=== PATIENT | female | born 1990 | race Caucasian/White ===

== ENCOUNTER → 2016-07-17 | Outpatient (CLI) | payer BC, OTHER ==
[2016-07-17 11:17] LABS: Basophils # (A) 0.1 k/uL (0-0.2); Basophils % (A) 2 %; CH 30.1; CHCM 34.4; Eosinophils # (A) 0.2 k/uL (0-0.7); Eosinophils % (A) 3 %; HCT 42.4 % (34.0-46.0); HDW 2.83; Luc # (Auto) 0.14; Luc % (Auto) 2; Lymphocytes # (A) 2.5 k/uL (1.0-4.8); Lymphocytes % (A) 39 %; MCH 29.2 pg (25.0-35.0); MCHC 33.1 g/dL (31.0-37.0); MCV 88.1 fL (80.0-100.0); Mean Platelet Volume 7.4; Monocytes # (A) 0.3 k/uL (0-1.0); Monocytes % (A) 5 %; Neutrophils # (A) 3.2 k/uL (1.3-7.7); Neutrophils % (A) 50 %; RBC 4.81 m/uL (3.80-5.40); RDW 12.8 % (11.5-15.5); WBC 6.5 k/uL (3.8-10.6); WBC (Perox) 6.74
[2016-07-17 12:10] LABS: ALT 35 U/L (9-52); AST 22 U/L (14-36); Alkaline Phosphatase 79 U/L (38-126); Anion Gap 11 mmol/L; Blood Urea Nitrogen 9 mg/dL (7-17); C Reactive Protein 6.7 mg/L (<10.0); Calcium 9.6 mg/dL (8.4-10.2); Carbon Dioxide 27 mmol/L (22-30); Chloride 104 mmol/L (98-107); Glucose 91 mg/dL (74-99); Non-African American GFR(MDRD) >60 (>60 ml/min/1.73 sqM); Potassium 3.8 mmol/L (3.5-5.1); Rheumatoid Factor, Qnt <9 IU/mL (<12); Sodium 142 mmol/L (137-145); Total Bilirubin 0.8 mg/dL (0.2-1.3)
[2016-07-17 12:18] LABS: Erythrocyte Sedimentation Rate 2 mm/hr (0-20)
[2016-07-17 12:59] LABS: Vitamin B12 777 pg/mL (239-931)
--- NOTE | 2016-07-17 15:49 | MR ---
EXAMINATION TYPE: MR brain wo con DATE OF EXAM: 07/17/2016 10:46 AM COMPARISON: NONE HISTORY: Right Side Numbness, Headaches, no Trauma or Surgery TECHNIQUE: Multiplanar, multisequence imaging of the brain and brainstem is performed without IV cont rast. FINDINGS: Diffusion weighted images demonstrate no evidence of a recent infarct or other diffusion abnormality. There is no extraaxial fluid collection or significant white matter signal abnormality. The ventricu lar system and cisternal spaces are normal in size and appearance. The brain volume is age appropria te. Midline structures demonstrate normal morphology. The craniocervical junction appears within normal limits. Normal vascular flow voids are present. There is mild mucosal thickening involving ethmoid si nuses bilaterally otherwise the paranasal sinuses are grossly clear. There is some artifact distortio n at level of bilateral globes noted. No suspicious fluid signal is seen in bilateral mastoid air hi ls. IMPRESSION: Mild chronic ethmoid sinus disease otherwise unremarkable study.
--- NOTE | 2016-07-17 15:53 | MR ---
MRI CERVICAL SPINE: MRI LUMBAR SPINE: CLINICAL HISTORY: Cervicalgia and lumbago per order. Headache with neck pain and stiffness and numbne ss for 4 months and low back pain per patient. TECHNIQUE: Multiplanar, multisequence imaging of the cervical and lumbar spine are performed without IV contrast. COMPARISON: CT abdomen and pelvis June 09, 2015 FINDINGS: C-SPINE: Sagittal images of the cervical spine show the craniocervical junction to appear within normal limits . The cervical and upper thoracic spinal cord is normal in course, caliber, and signal. Vertebral a lignment is anatomic. The vertebral body and intravertebral disk heights are normal. No significant posterior disc herniations are seen on sagittal images. The bone marrow signal intensity is within n ormal limits. Axial images show the C2-C3, C3-C4, C4-C5 level to appear within normal limits. Axial images at C5-C6 level show tiny central disc protrusion minimally effacing anterior thecal sac on axial image 21. There is increased signal posteriorly consistent with annular tear at this level. Bilateral neural foramina are patent. Axial images at C6-C7 and C7-T1 level are felt within normal limits. IMPRESSION: Annular tear with small posterior disc herniation minimally effacing anterior thecal sac C5-C6 level noted. EXAMINATION TYPE: MR cspine/lspine wo con DATE OF EXAM: 07/17/2016 10:47 AM COMPARISON: NONE L-SPINE: FINDINGS: Sagittal images of the lumbar spine show vertebral body heights and alignment to appear sat isfactory. The intervertebral discs demonstrate normal heights and hydration. No significant posteri or disc herniations are seen on sagittal images. The conus medullaris is normal in position and signa l ending at superior L1 vertebral body level. The bone marrow signal intensity is within normal limi ts. No significant spurring is present. Axial images show mild facet arthropathy at L4-L5 and L5-S1 levels. Spinal canal is preserved. No sig nificant posterior disc herniations are seen. Bilateral neural foramina are grossly patent. IMPRESSION: Mild facet arthropathy lower lumbar levels otherwise unremarkable study.
[2016-07-19 14:27] LABS: ANA w/Reflex to Titer POSITIVE (NEGATIVE)
== END | disposition home or self-care (01) ==
LOC: RADMRIMAIN 09:12
PROVIDERS: ATTEND Nurse Practitioner Acute Care
DX: R51 Headache (principal); M50.222 Other cervical disc displacement at C5-C6 level; M50.322 Other cervical disc degeneration at C5-C6 level; M46.96 Unspecified inflammatory spondylopathy, lumbar region
CPT/HCPCS: 36415; 70551; 72141; 72148; 80053; 82306; 82607; 84439; 84443; 84481; 85025; 85652; 86038; 86039; 86140; 86431

== ENCOUNTER → 2016-10-25 | Outpatient (CLI) | payer SELFPAY ==
--- NOTE | 2016-10-25 15:51 | US ---
EXAMINATION TYPE: US kidneys/renal and bladder DATE OF EXAM: 10/25/2016 3:27 PM COMPARISON: NONE CLINICAL HISTORY: 26-year-old female with R10.9 Rt Flank Pain. TECHNIQUE: Multiple sonographic images of the kidneys and bladder were obtained. FINDINGS: Right Kidney: 10.2 x 4.3 x 5.2 cm without hydronephrosis. Left Kidney: 10.2 x 5.0 x 4.3 cm without hydronephrosis. No gross abnormality of the partially urine distended bladder. Both ureteral jets are visualized. IMPRESSION: No hydronephrosis.
--- NOTE | 2016-10-25 15:53 | US ---
EXAMINATION TYPE: US pelvic complete DATE OF EXAM: 10/25/2016 3:35 PM COMPARISON: NONE CLINICAL HISTORY: 26-year-old female R10.9 Rt Flank Pain. Right pelvic pain, nausea Date of LMP: 2-3 weeks ago TECHNIQUE: Multiple transabdominal sonographic images of the pelvis are obtained. FINDINGS: Uterus: Anteverted measuring 8.9 x 3.7 x 4.3 cm Endometrial Stripe: 1.0 cm, within normal limits. Right Ovary: 2.5 x 1.2 x 1.5 cm Left Ovary: 4.2 x 2.1 x 1.7 cm with follicular change. There may be a 2.5 cm septated versus 2 adjac ent cysts No evident adnexal abnormality or cul-de-sac free fluid. IMPRESSION: 1. Either a 2.5 cm septated cyst versus 2 adjacent cysts/follicles in the left ovary. Consider follow -up in 6-8 weeks to ensure resolution. 2. Otherwise, no specific abnormality seen on transabdominal scanning.
== END | disposition home or self-care (01) ==
LOC: RADUSWWP 15:04
PROVIDERS: ATTEND Pediatrics
DX: R10.9 Unspecified abdominal pain (principal)
CPT/HCPCS: 76770; 76856

== ENCOUNTER 2017-04-03 14:47 | Emergency (ER) | payer BC, OTHER ==
[2017-04-03 15:07] VITALS: RESP 18
[2017-04-03] MEDS ORDERED: Rhogam IMMUNE GLOBULIN 1,500 UNIT/1 ML IM ONE (15:32)
[2017-04-03 16:04] LABS: Basophils % (A) 1 %; CH 30.9; CHCM 33.5; Eosinophils # (A) 0.2 k/uL (0-0.7); Eosinophils % (A) 3 %; HDW 2.46; HGB 12.6 gm/dL (11.4-16.0); Luc % (Auto) 1; Lymphocytes % (A) 30 %; MCH 29.8 pg (25.0-35.0); MCHC 32.2 g/dL (31.0-37.0); MCV 92.6 fL (80.0-100.0); Mean Platelet Volume 7.7; Monocytes # (A) 0.4 k/uL (0-1.0); Monocytes % (A) 5 %; Neutrophils # (A) 3.9 k/uL (1.3-7.7); Neutrophils % (A) 60 %; RBC 4.21 m/uL (3.80-5.40); RDW 14.4 % (11.5-15.5); WBC 6.6 k/uL (3.8-10.6); WBC (Perox) 7.23
[2017-04-03 16:13] LABS: Anion Gap 10 mmol/L; Blood Urea Nitrogen 11 mg/dL (7-17); Calcium 9.5 mg/dL (8.4-10.2); Carbon Dioxide 21 mmol/L (22-30); Chloride 110 mmol/L (98-107); Glucose 121 mg/dL (74-99); Non-African American GFR(MDRD) >60 (>60 ml/min/1.73 sqM); Potassium 3.8 mmol/L (3.5-5.1); Sodium 141 mmol/L (137-145)
--- NOTE | 2017-04-03 16:26 | ED ---
Female Urogenital HPI - General Chief complaint: Vaginal Bleeding Stated complaint: 4 weeks /Bleeding Time Seen by Provider: 04/03/17 15:31 Source: patient, RN notes reviewed Mode of arrival: ambulatory Limitations: no limitations - History of Present Illness Initial comments: this a 26-year-old female presents emergency from she complaint vaginal bleeding in early . Patient states she is A0 started having spotting last 24 hours. Patient states that she took a test on she is . Patient states she is scheduled appointment with her [facility] Dr. Bernal. Patient states she has some lower abdominal cramping denies any dysuria or hematuria. Denies any vaginal discharge only states that she has bleeding. Patient denies any nausea, vomiting diarrhea constipation. Last Menstrual Period: 02/24/17 - Related Data Home Medications Medication Instructions Recorded Confirmed Sertraline [Zoloft] 50 mg PO HS 05/10/16 04/03/17 Cetirizine HCl [Zyrtec] 10 mg PO HS 04/03/17 04/03/17 Cholecalciferol [Vitamin D3] 1,000 unit PO HS 04/03/17 04/03/17 Multivit with Calcium,Iron,Min 1 tab PO QAM 04/03/17 04/03/17 [Women's Multivitamin] Allergies Allergy/AdvReac Type Severity Reaction Status Date / Time No Known Allergies Allergy Verified 04/03/17 15:21 Review of Systems ROS Statement: Those systems with pertinent positive or pertinent negative responses have been documented in the HPI. ROS Other: All systems not noted in ROS Statement are negative. Past Medical History Past Medical History: No Reported History Additional Past Medical History / Comment(s): History of a blood clot in her right arm after having her wisdom teeth pulled History of Any Multi-Drug Resistant Organisms: None Reported Past Surgical History: No Surgical Hx Reported Additional Past Surgical History / Comment(s): wisdom teeth removed Past Anesthesia/Blood Transfusion Reactions: No Reported Reaction Past Psychological History: Depression Smoking Status: Never smoker Past Alcohol Use History: Occasional Past Drug Use History: None Reported - Past Family History Mother Family Medical History: No Reported History General Exam Limitations: no limitations General appearance: alert, in no apparent distress Head exam: Present: atraumatic, normocephalic, normal inspection Cardiovascular Exam: Present: regular rate, normal rhythm, normal heart sounds. Absent: systolic murmur, diastolic murmur, rubs, gallop, clicks GI/Abdominal exam: Present: soft, normal bowel sounds. Absent: distended, tenderness, guarding, rebound, rigid Back exam: Absent: CVA tenderness (R), CVA tenderness (L) Course Vital Signs 04/03/17 15:03 Temperature 97.4 F L Pulse Rate 75 Respiratory 18 Rate Blood Pressure 121/82 O2 Sat by Pulse 100 Oximetry Medical Decision Making - Medical Decision Making 26-year-old female presented emergency department for vaginal bleeding in early . Patient appears to be having a miscarriage. Patient ECG is only 7 at this time. Patient is b negativeand still receive RhoGAM she'll follow-up with [facility] return parameters discussed. - Lab Data Result diagrams: 04/03/17 15:52 04/03/17 15:52 Lab Results 04/03/17 04/03/17 04/03/17 Range/Units 15:52 15:52 15:52 WBC 6.6 (3.8-10.6) k/uL RBC 4.21 (3.80-5.40) m/uL Hgb 12.6 (11.4-16.0) gm/dL Hct 39.0 (34.0-46.0) % MCV 92.6 (80.0-100.0) fL MCH 29.8 (25.0-35.0) pg MCHC 32.2 (31.0-37.0) g/dL RDW 14.4 (11.5-15.5) % Plt Count 231 (150-450) k/uL Neutrophils % 60 % Lymphocytes % 30 % Monocytes % 5 % Eosinophils % 3 % Basophils % 1 % Neutrophils # 3.9 (1.3-7.7) k/uL Lymphocytes # 2.0 (1.0-4.8) k/uL Monocytes # 0.4 (0-1.0) k/uL Eosinophils # 0.2 (0-0.7) k/uL Basophils # 0.0 (0-0.2) k/uL Sodium 141 (137-145) mmol/L Potassium 3.8 (3.5-5.1) mmol/L Chloride 110 H (98-107) mmol/L Carbon Dioxide 21 L (22-30) mmol/L Anion Gap 10 mmol/L BUN 11 (7-17) mg/dL Creatinine 0.60 (0.52-1.04) mg/dL Est GFR (MDRD) Af Amer >60 (>60 ml/min/1.73 sqM) Est GFR (MDRD) Non-Af >60 (>60 ml/min/1.73 sqM) Glucose 121 H (74-99) mg/dL Calcium 9.5 (8.4-10.2) mg/dL HCG, Quant 7.1 mIU/mL Urine Color Urine Appearance (Clear) Urine pH (5.0-8.0) Ur Specific [place] (1.001-1.035) Urine Protein (Negative) Urine Glucose (UA) (Negative) Urine Ketones (Negative) Urine Blood (Negative) Urine Nitrite (Negative) Urine Bilirubin (Negative) Urine Urobilinogen (<2.0) mg/dL Ur Leukocyte Esterase (Negative) Urine RBC (0-5) /hpf Urine WBC (0-5) /hpf Ur Squamous Epith Cells (0-4) /hpf Urine Bacteria (None) /hpf Urine Mucus (None) /hpf Blood Type B Negative Blood Type Recheck No Antibody Screen NEGATIVE Spec Expiration Date 04/06/2017 - 235104/03/17 Range/Units 16:00 WBC (3.8-10.6) k/uL RBC (3.80-5.40) m/uL Hgb (11.4-16.0) gm/dL Hct (34.0-46.0) % MCV (80.0-100.0) fL MCH (25.0-35.0) pg MCHC (31.0-37.0) g/dL RDW (11.5-15.5) % Plt Count (150-450) k/uL Neutrophils % % Lymphocytes % % Monocytes % % Eosinophils % % Basophils % % Neutrophils # (1.3-7.7) k/uL Lymphocytes # (1.0-4.8) k/uL Monocytes # (0-1.0) k/uL Eosinophils # (0-0.7) k/uL Basophils # (0-0.2) k/uL Sodium (137-145) mmol/L Potassium (3.5-5.1) mmol/L Chloride (98-107) mmol/L Carbon Dioxide (22-30) mmol/L Anion Gap mmol/L BUN (7-17) mg/dL Creatinine (0.52-1.04) mg/dL Est GFR (MDRD) Af Amer (>60 ml/min/1.73 sqM) Est GFR (MDRD) Non-Af (>60 ml/min/1.73 sqM) Glucose (74-99) mg/dL Calcium (8.4-10.2) mg/dL HCG, Quant mIU/mL Urine Color Yellow Urine Appearance Clear (Clear) Urine pH 6.5 (5.0-8.0) Ur Specific [place] 1.027 (1.001-1.035) Urine Protein Trace H (Negative) Urine Glucose (UA) 2+ H (Negative) Urine Ketones Negative (Negative) Urine Blood Moderate H (Negative) Urine Nitrite Negative (Negative) Urine Bilirubin Negative (Negative) Urine Urobilinogen <2.0 (<2.0) mg/dL Ur Leukocyte Esterase Small H (Negative) Urine RBC >182 H (0-5) /hpf Urine WBC 16 H (0-5) /hpf Ur Squamous Epith Cells 6 H (0-4) /hpf Urine Bacteria Occasional H (None) /hpf Urine Mucus Few H (None) /hpf Blood Type Blood Type Recheck Antibody Screen Spec Expiration Date Disposition Clinical Impression: Miscarriage Disposition: HOME SELF-CARE Condition: Stable Instructions: Miscarriage (ED) Additional Instructions: Please return to the Emergency Department if symptoms worsen or any other concerns. Referrals: Edgardo Dunn MD [Primary Care Provider] - 1-2 days
[2017-04-03 16:51] LABS: Appearance,Urine Clear (Clear); Bacteria,Urine Occasional /hpf; Bilirubin,Urine Negative (Negative); Glucose,Urine (UA) 2+ (Negative); Ketones,Urine Negative (Negative); Leukocyte Esterase,Urine Small (Negative); Mucus,Urine Few /hpf; Nitrite,Urine Negative (Negative); PH, Urine 6.5 (5.0-8.0); Particle Count 7164; Protein,Urine Trace (Negative); RBC,Urine >182 /hpf (0-5); Specific Gravity,Urine 1.027 (1.001-1.035); Squamous Epithelial Cell,Urine 6 /hpf (0-4); UA Billing (MACRO vs. MICRO) MICRO; Urobilinogen,Urine <2.0 mg/dL (<2.0); WBC,Urine 16 /hpf (0-5)
--- NOTE | 2017-04-03 17:00 | US ---
EXAMINATION TYPE: US OB <=14 wks transvag DATE OF EXAM: 04/03/2017 COMPARISON: NONE CLINICAL HISTORY: pain. EXAM PERFORMED: Transvaginal (TV) and Transabdominal (TA) EXAM MEASUREMENTS: GESTATIONAL AGE / DATING Physician Established: Not yet established Dates by LMP: LMP unknown Dates by First Scan: No previous this is first scan EDC: Dates by Current Scan for: No IUP seen at this time MATERNAL ANATOMY Uterus: 6.8 x 3.2 x 4.6 Right Ovary: 1.9 x 1.1 x 1.3cm Left Ovary: obscured by bowel gas Post CDS / Adnexa: wnl GESTATION / SURVEY IUP: No IUP seen at this time Date of LMP: 02/24/17 Beta HcG (if available): 7.1 IMPRESSION: Normal uterus and endometrium. No adnexal mass. No evidence of a gestational sac.
[2017-04-03 17:40] VITALS: BP 123/62; PULSE 76; TEMP 97.3
== END 2017-04-03 17:40 | disposition home or self-care (01) ==
LOC: EC 14:47
DX: O03.9 Complete or unspecified spontaneous abortion without complication (principal); O99.341 Other mental disorders complicating pregnancy, first trimester; F32.9 Major depressive disorder, single episode, unspecified; Z3A.01 Less than 8 weeks gestation of pregnancy; Z79.899 Other long term (current) drug therapy
CPT/HCPCS: 36415; 86900; 86901; 80048; 85025; 86850; 81001; 84702; 76801; 76817; 99284; 96372; J2791

== ENCOUNTER 2017-06-01 13:41 | Emergency (ER) | payer BC, OTHER ==
[2017-06-01 13:48] VITALS: RESP 17; TEMP 97.7
[2017-06-01] MEDS ORDERED: SODIUM CHLORIDE 0.9% 500 ML IV ONE (14:41)
--- NOTE | 2017-06-01 14:44 | ED ---
Abdominal Pain HPI - General Chief Complaint: Abdominal Pain Stated Complaint: flank pain/early Time Seen by Provider: 06/01/17 14:13 Source: patient, RN notes reviewed Mode of arrival: ambulatory Limitations: no limitations - History of Present Illness Initial Comments: This a 26-year-old female presents emergency Department chief complaint right flank pain. Patient states it started last has been persistent. Patient states she found out last week also she is . Patient is A1. She states that she had a miscarriage in March currently scheduled see Dr. Bernal. Patient denies any vaginal bleeding or vaginal discharge. Denies any dysuria, hematuria. She states she is just concerned because of pain worsen slightly today. Patient denies any chest pain or shortness of breath. - Related Data Home Medications Medication Instructions Recorded Confirmed Sertraline [Zoloft] 100 mg PO HS 05/10/16 06/01/17 Cetirizine HCl [Zyrtec] 10 mg PO HS 04/03/17 06/01/17 Hrg-Dqnc-Frxyr Acid 1 cap PO DAILY 06/01/17 06/01/17 [-U Capsule (formulary)] Allergies Allergy/AdvReac Type Severity Reaction Status Date / Time No Known Allergies Allergy Verified 06/01/17 14:00 Review of Systems ROS Statement: Those systems with pertinent positive or pertinent negative responses have been documented in the HPI. ROS Other: All systems not noted in ROS Statement are negative. Past Medical History Past Medical History: Blood Disorder, Deep Vein Thrombosis (DVT) Additional Past Medical History / Comment(s): History of a blood clot in her right arm after having her wisdom teeth pulled, anemia History of Any Multi-Drug Resistant Organisms: None Reported Past Surgical History: No Surgical Hx Reported Additional Past Surgical History / Comment(s): wisdom teeth removed Past Anesthesia/Blood Transfusion Reactions: No Reported Reaction Past Psychological History: Depression Smoking Status: Never smoker Past Alcohol Use History: None Reported Past Drug Use History: None Reported - Past Family History Mother Family Medical History: No Reported History General Exam Limitations: no limitations General appearance: alert, in no apparent distress Head exam: Present: atraumatic, normocephalic, normal inspection Respiratory exam: Present: normal lung sounds bilaterally. Absent: respiratory distress, wheezes, rales, rhonchi, stridor Cardiovascular Exam: Present: regular rate, normal rhythm, normal heart sounds. Absent: systolic murmur, diastolic murmur, rubs, gallop, clicks GI/Abdominal exam: Present: soft, tenderness (Mild right-sided right flank), normal bowel sounds. Absent: distended, guarding, rebound, rigid Back exam: Absent: CVA tenderness (R), CVA tenderness (L) Skin exam: Present: warm, dry, intact, normal color. Absent: rash Course Vital Signs 06/01/17 06/01/17 13:42 16:27 Temperature 97.7 F Pulse Rate 88 83 Respiratory 17 17 Rate Blood Pressure 124/72 118/65 O2 Sat by Pulse 99 100 Oximetry Medical Decision Making - Medical Decision Making 26-year-old female presented for abdominal pain in early . I do not see any complicating factors or signs of infection at this time. Patient has very early with an hCG level of 223. Ultrasound was performed which did not show much secondary to early . No evidence of infection. Patient has no vaginal bleeding or vaginal discharge. She will follow up at her scheduled [facility] appointment return parameters were discussed. - Lab Data Result diagrams: 06/01/17 14:55 06/01/17 14:55 Lab Results 06/01/17 06/01/17 06/01/17 Range/Units 14:55 14:55 14:55 WBC 7.6 (3.8-10.6) k/uL RBC 4.51 (3.80-5.40) m/uL Hgb 13.1 (11.4-16.0) gm/dL Hct 39.7 (34.0-46.0) % MCV 88.1 (80.0-100.0) fL MCH 29.1 (25.0-35.0) pg MCHC 33.0 (31.0-37.0) g/dL RDW 12.5 (11.5-15.5) % Plt Count 242 (150-450) k/uL Neutrophils % 64 % Lymphocytes % 25 % Monocytes % 6 % Eosinophils % 2 % Basophils % 0 % Neutrophils # 4.9 (1.3-7.7) k/uL Lymphocytes # 1.9 (1.0-4.8) k/uL Monocytes # 0.5 (0-1.0) k/uL Eosinophils # 0.1 (0-0.7) k/uL Basophils # 0.0 (0-0.2) k/uL Sodium 140 (137-145) mmol/L Potassium 4.6 (3.5-5.1) mmol/L Chloride 107 (98-107) mmol/L Carbon Dioxide 22 (22-30) mmol/L Anion Gap 11 mmol/L BUN 9 (7-17) mg/dL Creatinine 0.60 (0.52-1.04) mg/dL Est GFR (MDRD) Af Amer >60 (>60 ml/min/1.73 sqM) Est GFR (MDRD) Non-Af >60 (>60 ml/min/1.73 sqM) Glucose 76 (74-99) mg/dL Calcium 9.3 (8.4-10.2) mg/dL Total Bilirubin 0.4 (0.2-1.3) mg/dL AST 23 (14-36) U/L ALT 32 (9-52) U/L Alkaline Phosphatase 66 (38-126) U/L Total Protein 7.0 (6.3-8.2) g/dL Albumin 4.4 (3.5-5.0) g/dL HCG, Quant 223.6 mIU/mL Urine Color Yellow Urine Appearance Clear (Clear) Urine pH 8.0 (5.0-8.0) Ur Specific [place] 1.016 (1.001-1.035) Urine Protein Negative (Negative) Urine Glucose (UA) Negative (Negative) Urine Ketones Negative (Negative) Urine Blood Negative (Negative) Urine Nitrite Negative (Negative) Urine Bilirubin Negative (Negative) Urine Urobilinogen 2.0 (<2.0) mg/dL Ur Leukocyte Esterase Negative (Negative) Disposition Clinical Impression: Abdominal pain during Disposition: HOME SELF-CARE Condition: Stable Instructions: Abdominal Pain in (ED) Additional Instructions: Please return to the Emergency Department if symptoms worsen or any other concerns. Referrals: Edgardo Dunn MD [Primary Care Provider] - 1-2 days Time of Disposition: 16:32
[2017-06-01 15:11] LABS: Appearance,Urine Clear (Clear); Bilirubin,Urine Negative (Negative); Glucose,Urine (UA) Negative (Negative); Ketones,Urine Negative (Negative); Leukocyte Esterase,Urine Negative (Negative); Nitrite,Urine Negative (Negative); Protein,Urine Negative (Negative); Specific Gravity,Urine 1.016 (1.001-1.035); UA Billing (MACRO vs. MICRO) CHEM
[2017-06-01 15:16] LABS: Basophils % (A) 0 %; CH 29.7; CHCM 33.9; Eosinophils # (A) 0.1 k/uL (0-0.7); Eosinophils % (A) 2 %; HCT 39.7 % (34.0-46.0); HDW 2.54; HGB 13.1 gm/dL (11.4-16.0); Luc % (Auto) 3; Lymphocytes # (A) 1.9 k/uL (1.0-4.8); Lymphocytes % (A) 25 %; MCH 29.1 pg (25.0-35.0); MCV 88.1 fL (80.0-100.0); Monocytes # (A) 0.5 k/uL (0-1.0); Monocytes % (A) 6 %; Neutrophils # (A) 4.9 k/uL (1.3-7.7); Neutrophils % (A) 64 %; RBC 4.51 m/uL (3.80-5.40); RDW 12.5 % (11.5-15.5); WBC 7.6 k/uL (3.8-10.6); WBC (Perox) 7.53
[2017-06-01 15:45] LABS: ALT 32 U/L (9-52); AST 23 U/L (14-36); Alkaline Phosphatase 66 U/L (38-126); Anion Gap 11 mmol/L; Blood Urea Nitrogen 9 mg/dL (7-17); Calcium 9.3 mg/dL (8.4-10.2); Carbon Dioxide 22 mmol/L (22-30); Chloride 107 mmol/L (98-107); Glucose 76 mg/dL (74-99); Non-African American GFR(MDRD) >60 (>60 ml/min/1.73 sqM); Potassium 4.6 mmol/L (3.5-5.1); Sodium 140 mmol/L (137-145); Total Bilirubin 0.4 mg/dL (0.2-1.3)
--- NOTE | 2017-06-01 16:22 | US ---
EXAMINATION TYPE: US kidneys/renal and bladder DATE OF EXAM: 06/01/2017 COMPARISON: 10/25/2016 CLINICAL HISTORY: Pain. Right side pain EXAM MEASUREMENTS: Right Kidney: 10.0 x 4.6 x 3.8 cm Left Kidney: 10.0 x 4.5 x 4.3 cm Right Kidney: No hydronephrosis or masses seen Left Kidney: No hydronephrosis or masses seen Bladder: wnl as visualized Bilateral Jets seen There is no evidence for hydronephrosis at this point in time. No nephrolithiasis is seen. No iqra s are identified. The urinary bladder is anechoic. Bilateral ureteral jets are seen. IMPRESSION: Normal retroperitoneal ultrasound
--- NOTE | 2017-06-01 16:24 | US ---
EXAMINATION TYPE: US OB <=14 wks transvag DATE OF EXAM: 06/01/2017 COMPARISON: CLINICAL HISTORY: Pain. patient states she found out she was last week and is having right s carlos pain. No bleeding. EXAM PERFORMED: Transvaginal (TV) and Transabdominal (TA) EXAM MEASUREMENTS: GESTATIONAL AGE / DATING Dates by LMP: (5 weeks/0 days) EDC: 02/01/2018 Dates by Current Scan for: No IUP seen at this time MATERNAL ANATOMY Uterus: 8.7 x 4.8 x 4.1 cm Right Ovary: 2.5 x 1.4 x 1.2 cm Left Ovary: 4.9 x 2.4 x 2.5 cm Post CDS / Adnexa: free fluid seen in posterior cul de sac and adjacent to both ovaries Presence of corpus luteal cyst: Complex lesion seen in left ovary = 3.0 x 2.9 x 2.2 cm GESTATION / SURVEY IUP: No IUP seen at this time Date of LMP: 04/27/2017, Beta HcG (if available): 223.6 GS, YS and CRL not seen. Endometrium appears thickened = 1.7 cm and slightly heterogenous. IMPRESSION: 1. Nonvisualization of an intrauterine at this time. Early gestation and spontaneous aborti on could be considered. Ectopic is not excluded and follow-up exams and correlation with be ta-hCG is recommended. 2. Complex cyst left ovary
[2017-06-01 16:28] VITALS: BP 118/65; PULSE 83
== END 2017-06-01 16:42 | disposition home or self-care (01) ==
LOC: EC 13:41
DX: O99.89 Other specified diseases and conditions complicating pregnancy, childbirth and the puerperium (principal); R10.9 Unspecified abdominal pain; O99.341 Other mental disorders complicating pregnancy, first trimester; F32.9 Major depressive disorder, single episode, unspecified; Z3A.01 Less than 8 weeks gestation of pregnancy; Z79.899 Other long term (current) drug therapy
CPT/HCPCS: 36415; 76770; 76801; 76817; 80053; 81003; 84702; 85025; 87086; 96360; 96361; 99284

== ENCOUNTER → 2017-06-07 | Outpatient (CLI) | payer BC, OTHER | END | disposition home or self-care (01) | LOC: LABWHC1 09:11 | PROVIDERS: ATTEND Obstetrics & Gynecology | DX: O26.891 Other specified pregnancy related conditions, first trimester (principal); Z3A.00 Weeks of gestation of pregnancy not specified | CPT/HCPCS: 36415; 84702 ==

== ENCOUNTER 2017-07-27 19:23 | Emergency (ER) | payer BC, OTHER ==
[2017-07-27 19:31] VITALS: TEMP 98.7
[2017-07-27] MEDS ORDERED: SODIUM CHLORIDE 0.9% 1,000 ML IV STA ×2 (19:46)
[2017-07-27] MEDS ORDERED: METOCLOPRAMIDE 5 MG/ML 2 ML VIAL IVP STA (19:46)
--- NOTE | 2017-07-27 19:54 | ED ---
General Adult HPI - General Chief complaint: Nausea/Vomiting/Diarrhea Stated complaint: Dehydration Source: patient, RN notes reviewed Mode of arrival: ambulatory Limitations: no limitations - History of Present Illness Initial comments: Chief complaint and history of present illness a 26-year-old female who is 13 weeks . Patient states she was flying on a plane yesterday had one episode of vomiting was a small amount of blood in that. Today she vomited 5 times for several times no blood was noted. Afterwards she did drink red Gatorade and look red. No pain. She also had diarrhea. No fever. Patient has had difficulties problems with nausea vomiting because of the . - Related Data Home Medications Medication Instructions Recorded Confirmed Cetirizine HCl [Zyrtec] 10 mg PO HS 04/03/17 07/27/17 Eui-Icft-Amcag Acid 1 cap PO HS 06/01/17 07/27/17 [-U Capsule (formulary)] Sertraline [Zoloft] 100 mg PO HS 07/27/17 07/27/17 Previous Rx's Medication Instructions Recorded Ondansetron Odt [Zofran Odt] 4 mg PO Q8HR PRN #10 tab 07/27/17 Allergies Allergy/AdvReac Type Severity Reaction Status Date / Time No Known Allergies Allergy Verified 07/27/17 19:35 Review of Systems ROS Statement: Those systems with pertinent positive or pertinent negative responses have been documented in the HPI. Review of systems. Patient denies headache or visual acuity changes no chest pain or shortness of breath. She has nausea vomiting several times today. Loose stool earlier. Area no fever. No neuro deficits. All systems are reviewed. Past medical problems no significant medical problems. Patient is 13 weeks . She did not get a flu shot this fall. The patient's surgeries include wisdom teeth only. Family history no cancers. Patient reports are seasonal ALLERGIES. Nonsmoker drinks alcohol socially when not . ROS Other: All systems not noted in ROS Statement are negative. Past Medical History Past Medical History: Blood Disorder, Deep Vein Thrombosis (DVT) Additional Past Medical History / Comment(s): History of a blood clot in her right arm after having her wisdom teeth pulled, anemia History of Any Multi-Drug Resistant Organisms: None Reported Past Surgical History: No Surgical Hx Reported Additional Past Surgical History / Comment(s): wisdom teeth removed Past Anesthesia/Blood Transfusion Reactions: No Reported Reaction Past Psychological History: Depression Smoking Status: Never smoker Past Alcohol Use History: None Reported Past Drug Use History: None Reported - Past Family History Mother Family Medical History: No Reported History General Exam - General Exam Comments Initial Comments: General: The patient is awake and alert, in no distress, and does not appear acutely ill. Complains of nausea vomiting diarrhea past 24 hours. Vital signs are temperature 98.7 pulse 83 respiratory rate 16 pulse ox 99% room air blood pressure 133/62 Eye: Pupils are equal, round and reactive to light, extra-ocular movements are intact ; there is normal conjunctiva bilaterally. No signs of icterus. Ears, nose, mouth and throat: There are moist mucous membranes and no oral lesions. Neck: The neck is supple, there is no tenderness . Cardiovascular: There is a regular rate and rhythm. No murmur, rub or gallop is appreciated. Respiratory: Lungs are clear to auscultation, respirations are non-labored, breath sounds are equal. No wheezes, stridor, rales, or rhonchi. Gastrointestinal: Soft, non-distended, non-tender abdomen without masses or organomegaly noted. There is no rebound or guarding present. No CVA tenderness. Bowel sounds are unremarkable. Back: There is no tenderness to palpation in the midline. There is no obvious deformity. No rashes noted. Nausea vomiting couple of sores diarrhea. Musculoskeletal: Normal ROM, no tenderness, There is no pedal edema. There is no calf tenderness or swelling. Sensation intact. Pulses equal bilaterally 2+. Neurological: No focal or lateralizing findings Skin: Skin is warm and dry and no rashes or lesions are noted. Limitations: no limitations Course Vital Signs 07/27/17 19:28 Temperature 98.7 F Pulse Rate 83 Respiratory 16 Rate Blood Pressure 133/62 O2 Sat by Pulse 99 Oximetry Medical Decision Making - Medical Decision Making Medical decision making; the patient is 13 weeks , nausea or vomiting. She's had hyperemesis gravidarum in the previous part of the . Vital signs are stable. Labs show white count of 9.1 hemoglobin 12.9 hematocrit 38.9. Potassium is 3.8 BUN 8 creatinine 0.55 the GFR greater than 60. Glucose 96. Amylase lipase normal limits. Influenza AB-. She was rehydrated and given antinausea medication. She states she is feeling better and ready to go home. She'll be given Zofran ODT to use as directed and to follow with her family physician and [facility]. - Lab Data Result diagrams: 07/27/17 20:03 07/27/17 20:03 Lab Results 07/27/17 07/27/17 07/27/17 Range/Units 20:03 20:03 20:03 WBC 9.1 (3.8-10.6) k/uL RBC 4.39 (3.80-5.40) m/uL Hgb 12.9 (11.4-16.0) gm/dL Hct 38.9 (34.0-46.0) % MCV 88.5 (80.0-100.0) fL MCH 29.4 (25.0-35.0) pg MCHC 33.3 (31.0-37.0) g/dL RDW 14.3 (11.5-15.5) % Plt Count 223 (150-450) k/uL Neutrophils % 76 % Lymphocytes % 19 % Monocytes % 3 % Eosinophils % 2 % Basophils % 0 % Neutrophils # 6.9 (1.3-7.7) k/uL Lymphocytes # 1.7 (1.0-4.8) k/uL Monocytes # 0.2 (0-1.0) k/uL Eosinophils # 0.2 (0-0.7) k/uL Basophils # 0.0 (0-0.2) k/uL Sodium 139 (137-145) mmol/L Potassium 3.9 (3.5-5.1) mmol/L Chloride 104 (98-107) mmol/L Carbon Dioxide 25 (22-30) mmol/L Anion Gap 10 mmol/L BUN 8 (7-17) mg/dL Creatinine 0.55 (0.52-1.04) mg/dL Est GFR (MDRD) Af Amer >60 (>60 ml/min/1.73 sqM) Est GFR (MDRD) Non-Af >60 (>60 ml/min/1.73 sqM) Glucose 96 (74-99) mg/dL Calcium 9.7 (8.4-10.2) mg/dL Total Bilirubin 0.5 (0.2-1.3) mg/dL AST 27 (14-36) U/L ALT 36 (9-52) U/L Alkaline Phosphatase 60 (38-126) U/L Total Protein 6.8 (6.3-8.2) g/dL Albumin 4.0 (3.5-5.0) g/dL Amylase 60 (30-110) U/L Lipase 62 (23-300) U/L Influenza Type A RNA Not Detected (Not Detectd) Influenza Type B (PCR) Not Detected (Not Detectd) Disposition Clinical Impression: Nausea & vomiting Disposition: HOME SELF-CARE Condition: Fair Instructions: Acute Nausea and Vomiting (ED), Acute Diarrhea (ED) Additional Instructions: Advance diet fluids, frequent small amounts. [place] diet. Use Zofran ODT to control nausea. Follow-up with the [facility]. Prescriptions: Ondansetron Odt [Zofran Odt] 4 mg PO Q8HR PRN #10 tab PRN Reason: Nausea vomiting Referrals: Edgardo Dunn MD [Primary Care Provider] - 1-2 days Time of Disposition: 20:54
[2017-07-27 20:19] LABS: Basophils % (A) 0 %; Eosinophils # (A) 0.2 k/uL (0-0.7); Eosinophils % (A) 2 %; HCT 38.9 % (34.0-46.0); HGB 12.9 gm/dL (11.4-16.0); Lymphocytes # (A) 1.7 k/uL (1.0-4.8); Lymphocytes % (A) 19 %; MCH 29.4 pg (25.0-35.0); MCHC 33.3 g/dL (31.0-37.0); MCV 88.5 fL (80.0-100.0); Mean Platelet Volume 7.4; Monocytes # (A) 0.2 k/uL (0-1.0); Monocytes % (A) 3 %; Neutrophils # (A) 6.9 k/uL (1.3-7.7); Neutrophils % (A) 76 %; Platelet Count 223 k/uL (150-450); RBC 4.39 m/uL (3.80-5.40); RDW 14.3 % (11.5-15.5); WBC 9.1 k/uL (3.8-10.6)
[2017-07-27 20:32] LABS: ALT 36 U/L (9-52); AST 27 U/L (14-36); Alkaline Phosphatase 60 U/L (38-126); Amylase 60 U/L (30-110); Anion Gap 10 mmol/L; Blood Urea Nitrogen 8 mg/dL (7-17); Calcium 9.7 mg/dL (8.4-10.2); Carbon Dioxide 25 mmol/L (22-30); Chloride 104 mmol/L (98-107); Glucose 96 mg/dL (74-99); Lipase 62 U/L (23-300); Potassium 3.9 mmol/L (3.5-5.1); Sodium 139 mmol/L (137-145); Total Bilirubin 0.5 mg/dL (0.2-1.3); Total Protein 6.8 g/dL (6.3-8.2)
[2017-07-27 20:57] VITALS: BP 116/79; PULSE 90; RESP 18
== END 2017-07-27 21:06 | disposition home or self-care (01) ==
LOC: EC 19:23
DX: O21.9 Vomiting of pregnancy, unspecified (principal); O99.89 Other specified diseases and conditions complicating pregnancy, childbirth and the puerperium; R19.7 Diarrhea, unspecified; O99.341 Other mental disorders complicating pregnancy, first trimester; Z3A.13 13 weeks gestation of pregnancy; Z79.899 Other long term (current) drug therapy
CPT/HCPCS: 36415; 80053; 82150; 83690; 85025; 87502; 99284; 96374; 96361; J2765

== ENCOUNTER → 2017-10-04 | Outpatient (CLI) | payer OTHER ==
--- NOTE | 2017-10-04 15:59 | US ---
EXAMINATION TYPE: US extremity nonvasc mass LT DATE OF EXAM: 10/04/2017 COMPARISON: NONE CLINICAL HISTORY: R22.40 Localized swelling, ma. Small palpable lump left araujo x 3 weeks Left mid araujo: 0.8 x 0.2 x 0.9cm superficial hypoechoic vascular structure, possible lymph node IMPRESSION: Normal-appearing lymph node is suspected.
--- NOTE | 2017-10-04 16:00 | US ---
EXAMINATION TYPE: US venous doppler duplex UE RT DATE OF EXAM: 10/04/2017 COMPARISON: US 2011 CLINICAL HISTORY: M79.603 Pain in arm,. Right arm pain SIDE PERFORMED: Right Visualized portions of the internal jugular, subclavian, axillary, brachial veins showed normal color flow, basilic and cephalic veins show color flow and are compressible. Radial and ulnar veins compre ssible as seen. Right Arm: Appears negative for DVT Grayscale, color doppler, spectral doppler imaging performed of the deep veins of the upper extremiti es. There is normal flow, compressability and vascular waveforms. IMPRESSION: No evident deep venous thrombosis in the visualized deep veins of the right upper extremity.
== END | disposition home or self-care (01) ==
LOC: RADUSWWP 14:00
PROVIDERS: ATTEND Pediatrics
DX: M79.601 Pain in right arm (principal); R22.42 Localized swelling, mass and lump, left lower limb

== ENCOUNTER 2017-10-31 18:18 | Outpatient (CLI) | payer OTHER ==
[2017-10-31 18:48] LABS: Appearance,Urine Clear (Clear); Bilirubin,Urine Negative (Negative); Blood,Urine Negative (Negative); Color,Urine Yellow; Glucose,Urine (UA) Negative (Negative); Ketones,Urine Negative (Negative); Leukocyte Esterase,Urine Negative (Negative); Nitrite,Urine Negative (Negative); PH, Urine 6.5 (5.0-8.0); Protein,Urine Negative (Negative); Specific Gravity,Urine 1.009 (1.001-1.035); Urobilinogen,Urine <2.0 mg/dL (<2.0)
[2017-10-31 18:54] VITALS: BP 123/79; PULSE 92; RESP 19; TEMP 96.5
--- NOTE | 2017-11-13 10:25 | P.MSEPDOC ---
Presenting Problems - Arrival Data Date of Arrival on Unit: 10/31/17 Time of Arrival on Unit: 18:18 Mode of Transport: Ambulatory - Complaint OB-Reason for Admission/Chief Complaint: Rule Out PROM Comment: Possible rupture of membranes approximately noon today. Patient unable to describe fluid type or color. Medical History - Information : 3 Para: 1 Term: 0 : 1 Abortions: Spontaneous or Elective: 1 Number of Living Children: 1 - Gestational Age Gestational Age by RAYMOND (wks/days): 26 Weeks and 5 Days - History Complications: Prior Review of Systems - Review of Systems Constitutional: No problems Breast: No problems ENT: No problems Cardiovascular: No problems Respiratory: No problems Gastrointestinal: No problems Genitourinary: No problems Musculoskeletal: No problems Neurological: No problems Skin: No problems Vital Signs - Temperature Temperature: 96.5 F Temperature Source: Temporal Artery Scan - Pulse Pulse Oximetery Pulse Rate: 92 Pulse Assessment Method: Pulse Oximetry - Respirations Respiratory Rate: 19 Oxygen Delivery Method: Room Air O2 Sat by Pulse Oximetry: 99 - Blood Pressure Right Arm Blood Pressure: 123/79 Blood Pressure Mean: 93 Blood Pressure Source: Automatic Cuff Medical Screen Scoring (Pre) - Cervical Exam Dilation: Exam Deferred Effacement: Exam Deferred Membranes: Intact - Uterine Contractions Frequency: N/A Duration: N/A Intensity: N/A - Maternal Vital Signs Maternal Temperature: N/A Maternal Blood Pressure: N/A Signs of Preeclampsia: N/A Maternal Respirations: N/A - Pain Assessment Pain Location and Character: Right, Abdomen Pain Scale Used: Numeric (1 - 10) Pain Intensity: 1 Pain Management Goal: 0 Pain Description: Cramping Pain Radiation Location: n/a Pain Frequency: Intermittent Pain Duration: 1 Pain Duration Units: Hours Pain Behavior: None Exhibited Effects of Pain: n/a Pain Aggravating Factors: None Pharmacological Interventions: Discuss Pain Med Options Non-Pharmacological Interventions: Distraction - Maternal Trauma Maternal Trauma: N/A - Assessment Baseline FHR: 145 Heart Rate - NICHD Category: Category I (Normal) = 0 NST: Reactive Position: N/A Station: N/A - Total Score Total Score (Pre): 0 - Level of Risk Level of Risk: Low (0-5) Physician Notification (Pre) - Physician Notified Physician Notified Date: 10/31/17 Physician Notified Time: 18:37 Physician/Practitioner Notifed:: Deb Spoke With: Deb New Order Received: Yes (U/A; discharge order) - Notification Comment Comment: Send urine for U/A; if urine WNL, discharge patient home and have her follow up with [facility] this week in office. Disposition - Disposition OB Disposition: Triage Discharge Date: 10/31/17 Discharge Time: 19:06 I agree with the RN Medical Screening Exam: Yes Risk & Benefit of care provided described in d/c instruction: Yes Diagnosis: RELATED CONDITIONS, UNSPECIFIED, SECOND TRIMESTER
== END 2017-10-31 19:06 | disposition home or self-care (01) ==
LOC: FBPOP 18:18
PROVIDERS: ATTEND Obstetrics & Gynecology
DX: O26.92 Pregnancy related conditions, unspecified, second trimester (principal); Z3A.26 26 weeks gestation of pregnancy
CPT/HCPCS: 84112; 81003; G0463; 99213

== ENCOUNTER 2018-01-02 16:17 | Outpatient (CLI) | payer OTHER ==
[2018-01-02 17:54] VITALS: BP 111/56; PULSE 99; RESP 16; TEMP 96.6
--- NOTE | 2018-01-15 08:40 | P.MSEPDOC ---
Presenting Problems - Arrival Data Date of Arrival on Unit: 01/02/18 Time of Arrival on Unit: 16:27 Mode of Transport: Ambulatory - Complaint OB-Reason for Admission/Chief Complaint: Rule Out SROM Medical History - Information : 3 Para: 1 Term: 0 : 1 Abortions: Spontaneous or Elective: 1 Number of Living Children: 1 - Gestational Age Gestational Age by RAYMOND (wks/days): 35 Weeks and 5 Days - History Complications: GDM Review of Systems - Review of Systems Constitutional: No problems Breast: No problems ENT: No problems Cardiovascular: No problems Respiratory: No problems Gastrointestinal: No problems Genitourinary: No problems Musculoskeletal: No problems Neurological: No problems Skin: No problems Vital Signs - Temperature Temperature: 96.6 F Temperature Source: Tympanic - Pulse Right Brachial Pulse Rate: 99 Pulse Assessment Method: Automatic Cuff - Respirations Respiratory Rate: 16 Oxygen Delivery Method: Room Air - Blood Pressure Right Arm Blood Pressure: 111/56 Blood Pressure Mean: 74 Blood Pressure Source: Automatic Cuff Medical Screen Scoring (Pre) - Cervical Exam Dilation: 1-3 cm = 1 Membranes: Intact - Uterine Contractions Frequency: N/A Duration: N/A Intensity: N/A - Maternal Vital Signs Maternal Temperature: N/A Maternal Blood Pressure: N/A Signs of Preeclampsia: N/A Maternal Respirations: N/A - Pain Assessment Pain Location and Character: Abdomen Pain Scale Used: Numeric (1 - 10) Pain Intensity: 2 Pain Management Goal: 2 Pain Description: *Acute Pain Radiation Location: na Pain Frequency: Intermittent Pain Duration: 3 Pain Duration Units: Minutes Pain Behavior: Vocalization Pain Aggravating Factors: None Non-Pharmacological Interventions: Relaxation Technique - Maternal Trauma Maternal Trauma: N/A - Assessment Baseline FHR: 125 Heart Rate - NICHD Category: Category I (Normal) = 0 NST: Reactive Position: N/A Station: N/A - Total Score Total Score (Pre): 1 - Level of Risk Level of Risk: Low (0-5) Physician Notification (Pre) - Physician Notified Physician Notified Date: 01/02/18 Physician Notified Time: 16:58 Physician/Practitioner Notifed:: Dr. Washington Spoke With: Dr. Washington New Order Received: Yes - Notification Comment Comment: d/c home Disposition - Disposition OB Disposition: Discharge to home Discharge Date: 01/02/18 Discharge Time: 17:00 I agree with the RN Medical Screening Exam: Yes Risk & Benefit of care provided described in d/c instruction: Yes Diagnosis: FALSE LABOR AT OR AFTER 37 COMPLETED WEEKS OF GESTATION
== END 2018-01-02 17:00 | disposition home or self-care (01) ==
LOC: FBPOP 16:17
PROVIDERS: ATTEND Obstetrics & Gynecology Obstetrics
DX: O47.03 False labor before 37 completed weeks of gestation, third trimester (principal); Z3A.35 35 weeks gestation of pregnancy
CPT/HCPCS: 59025; 84112; G0463; 99213

== ENCOUNTER 2018-01-15 22:58 | Outpatient (CLI) | payer OTHER ==
[2018-01-15 23:20] LABS: Glucose,Whole Blood 81 mg/dL (75-99)
[2018-01-15 23:37] VITALS: BP 128/67; PULSE 79; RESP 16; TEMP 98
--- NOTE | 2018-02-08 19:28 | P.MSEPDOC ---
Presenting Problems - Arrival Data Date of Arrival on Unit: 01/15/18 Time of Arrival on Unit: 22:58 Mode of Transport: Wheelchair - Complaint OB-Reason for Admission/Chief Complaint: Pain Comment: pt c/o vaginal and rectal pressure accompanied by some mild cramping. Medical History - Information : 3 Para: 1 Term: 0 : 1 Abortions: Spontaneous or Elective: 1 Number of Living Children: 1 - Gestational Age Gestational Age by RAYMOND (wks/days): 37 Weeks and 5 Days - History Complications: GDM Review of Systems - Review of Systems Constitutional: No problems Breast: No problems ENT: No problems Cardiovascular: No problems Respiratory: No problems Gastrointestinal: No problems Genitourinary: No problems Musculoskeletal: No problems Neurological: No problems Skin: No problems Vital Signs - Temperature Temperature: 98.0 F Temperature Source: Axillary - Pulse Right Sitting Brachial Pulse Rate: 79 Pulse Assessment Method: Automatic Cuff - Respirations Respiratory Rate: 16 Oxygen Delivery Method: Room Air - Blood Pressure Right Arm Sitting Blood Pressure: 128/67 Blood Pressure Mean: 87 Blood Pressure Source: Automatic Cuff Medical Screen Scoring (Pre) - Cervical Exam Dilation: 1-3 cm = 1 Membranes: Intact - Uterine Contractions Frequency: > 5 minutes apart = 1 Duration: > 40 seconds = 2 Intensity: N/A - Maternal Vital Signs Maternal Temperature: N/A Maternal Blood Pressure: N/A Signs of Preeclampsia: N/A Maternal Respirations: N/A - Pain Assessment Pain Location and Character: Lower, Abdomen Pain Scale Used: Numeric (1 - 10) Pain Intensity: 3 Pain Management Goal: 2 Pain Description: *Acute, Cramping, Pressure Pain Radiation Location: lower back Pain Frequency: Intermittent Pain Duration: 12 Pain Duration Units: Hours Pain Behavior: Vocalization Pain Aggravating Factors: None - Maternal Trauma Maternal Trauma: N/A - Assessment Baseline FHR: 135 Heart Rate - NICHD Category: Category I (Normal) = 0 NST: Reactive Position: N/A Station: N/A - Total Score Total Score (Pre): 4 - Level of Risk Level of Risk: Low (0-5) Physician Notification (Pre) - Physician Notified Physician Notified Date: 01/16/18 Physician Notified Time: 00:25 Physician/Practitioner Notifed:: lorraine Spoke With: lorraine New Order Received: Yes - Notification Comment Comment: d/c pt home with orders to f/u at appt on tuesday Disposition - Disposition OB Disposition: Discharge to home Discharge Date: 01/16/18 Discharge Time: 00:30 I agree with the RN Medical Screening Exam: Yes Risk & Benefit of care provided described in d/c instruction: Yes Diagnosis: FALSE LABOR AT OR AFTER 37 COMPLETED WEEKS OF GESTATION
== END 2018-01-16 00:30 | disposition home or self-care (01) ==
LOC: FBPOP 22:58
PROVIDERS: ATTEND Obstetrics & Gynecology Obstetrics
DX: O47.1 False labor at or after 37 completed weeks of gestation (principal); Z3A.37 37 weeks gestation of pregnancy
CPT/HCPCS: 59025; G0463; 99213

== ENCOUNTER 2018-01-23 08:19 | Inpatient (IN) | payer OTHER ==
[2018-01-23] MEDS ORDERED: TERBUTALINE 1 MG/ML VIAL SQ PRN (08:39)
[2018-01-23] MEDS ORDERED: CARBOPROST TROMETHAMINE 250 MCG/ML 1 ML AMP IM PRN (08:39)
[2018-01-23] MEDS ORDERED: METHYLERGONOVINE 0.2 MG/ML 1 ML AMP IM PRN (08:39)
[2018-01-23] MEDS ORDERED: LIDOCAINE 1% (PF) 10 MG/ML (30 ML SDV) SQ PRN (08:39)
[2018-01-23] MEDS ORDERED: OXYTOCIN 10 UNIT/ML 1 ML VIAL IM PRN (08:39)
--- NOTE | 2018-01-23 08:45 | P.HPOB ---
History of Present Illness H&P Date: 01/23/18 Chief Complaint: IUP at 38-5/7 weeks. Active labor This is a very pleasant 27-year-old 3 para 0111 that presents to labor and delivery in active labor. Patient has an estimated date of confinement of 725 based on last menstrual period. Patient does have a history of a delivery at 35 weeks, P PROM. Patient is noted to be Rh- and gestational diabetic diet controlled her sugars have been good throughout the . Patient has received routine care with myself since 8 weeks of gestation. On blood work she had a blood type of B-, rubella immune, RPR nonreactive, hepatitis B surface antigen negative, HIV negative, group beta strep negative Review of Systems Constitutional: Denies chills, Denies fatigue, Denies fever Cardiovascular: Reports edema Respiratory: Denies cough Gastrointestinal: Denies constipation, Denies diarrhea Genitourinary: Reports Past Medical History Past Medical History: Blood Disorder, Deep Vein Thrombosis (DVT) Additional Past Medical History / Comment(s): History of a blood clot in her right arm after having her wisdom teeth pulled, anemia History of Any Multi-Drug Resistant Organisms: None Reported Past Surgical History: No Surgical Hx Reported Additional Past Surgical History / Comment(s): wisdom teeth removed Past Anesthesia/Blood Transfusion Reactions: No Reported Reaction Smoking Status: Never smoker - Past Family History Mother Family Medical History: No Reported History Medications and Allergies Home Medications Medication Instructions Recorded Confirmed Type Cetirizine HCl [Zyrtec] 10 mg PO HS 04/03/17 01/15/18 History Agx-Sufa-Tvbkj Acid 1 cap PO HS 06/01/17 01/15/18 History [-U Capsule (formulary)] Sertraline [Zoloft] 100 mg PO HS 07/27/17 01/15/18 History Allergies Allergy/AdvReac Type Severity Reaction Status Date / Time No Known Allergies Allergy Verified 01/15/18 23:09 Exam Osteopathic Statement: *. No significant issues noted on an osteopathic structural exam other than those noted in the History and Physical/Consult. Intake and Output 01/22/18 01/23/18 01/23/18 22:59 06:59 14:59 Other: Weight 75.296 kg - OBG Physical Exam Abdomen: gravid Cervix: 5/-2 with intact membranes Uterus: enlarged Assessment and Plan (1) Term Current Visit: Yes Status: Acute Code(s): Z34.80 - ENCOUNTER FOR SUPRVSN OF NORMAL , UNSP TRIMESTER SNOMED Code(s): 92217818 Plan: Will admit to labor and delivery in active labor. Epidural per patient request. Anticipate spontaneous vaginal delivery later this afternoon.
[2018-01-23 09:23] LABS: Basophils % (A) 0 %; Eosinophils # (A) 0.2 k/uL (0-0.7); Eosinophils % (A) 1 %; HCT 39.3 % (34.0-46.0); HGB 13.5 gm/dL (11.4-16.0); Lymphocytes # (A) 2.4 k/uL (1.0-4.8); Lymphocytes % (A) 18 %; MCH 29.9 pg (25.0-35.0); MCHC 34.2 g/dL (31.0-37.0); MCV 87.2 fL (80.0-100.0); Mean Platelet Volume 7.7; Monocytes # (A) 0.5 k/uL (0-1.0); Monocytes % (A) 4 %; Neutrophils # (A) 9.7 k/uL (1.3-7.7); Neutrophils % (A) 75 %; Platelet Count 179 k/uL (150-450); RBC 4.51 m/uL (3.80-5.40); RDW 14.4 % (11.5-15.5); WBC 12.9 k/uL (3.8-10.6)
[2018-01-23] MEDS: LACTATED RINGERS 1,000 ML IV SCH ×3 (09:26→13:30)
[2018-01-23 09:34] VITALS: BMI 31.4
[2018-01-23 09:51] LABS: Glucose,Whole Blood 115 mg/dL (75-99)
[2018-01-23 11:54] LABS: Glucose,Whole Blood 78 mg/dL (75-99)
[2018-01-23] MEDS ORDERED: ROPIVACAINE 100 MG, fentaNYL (PF) 200 MCG in SODIUM CHLORIDE 0.9% 76 ML EPIDURAL ONE (13:25)
[2018-01-23] MEDS ORDERED: SIMETHICONE 80 MG CHEWABLE PO PRN (17:59)
[2018-01-23] MEDS ORDERED: LANOLIN CREAM 5 GM TUBE TOPICAL PRN (17:59)
[2018-01-23] MEDS ORDERED: diphenhydrAMINE 50 MG CAP PO PRN (17:59)
[2018-01-23] MEDS ORDERED: HYDROCORTISONE 2.5% RECTAL CREAM 30 GM TUBE RECTAL PRN (17:59)
[2018-01-23] MEDS ORDERED: ZOLPIDEM 5 MG TAB PO PRN (17:59)
[2018-01-23] MEDS ORDERED: diphenhydrAMINE 50 MG/ML 1 ML VIAL IVP PRN ×2 (17:59)
[2018-01-23] MEDS ORDERED: diphenhydrAMINE 25 MG CAP PO PRN (17:59)
[2018-01-23] MEDS ORDERED: WITCH HAZEL 1 EACH MED..PAD TOPICAL PRN (17:59)
[2018-01-23] MEDS ORDERED: BENZOCAINE/MENTHOL SPRAY 1 GM/SPRAY AEROSOL TOPICAL PRN (17:59)
[2018-01-23] MEDS ORDERED: ACETAMINOPHEN TAB 325 MG TAB PO PRN (17:59)
[2018-01-23] MEDS ORDERED: OXYTOCIN 20 UNITS/1000 ML NS 1,000 ML IV SCH (18:00)
--- NOTE | 2018-01-23 18:06 | P.PROBDLV ---
Vaginal Delivery Note - . Vaginal Delivery Note: This is a very pleasant 27-year-old 3 para 0111 at 38-5/7 weeks that presented to labor and delivery in active labor. On initial physical exam she was 5 cm dilated. Patient was admitted to labor and delivery and amniotomy was eventually performed yielding clear fluid, soon afterwards she received and epidural for analgesia. she progressed to complete and began pushing, and had a normal spontaneous vaginal delivery of a viable male infant at 1744, weight of 614, Apgars of 8 and 9 at one and 5 mins respectively. The cord is then doubly clamped and cut and the placenta was delivered spontaneously intact with three-vessel cord. Afterwards the vaginal vault was inspected bilateral labial lacerations that were hemostatic were noted, otherwise the vaginal vault was noted to be intact. The uterus was firm after delivery of the placenta. EBL 300 Patient and tolerated delivery well and is resting comfortably
[2018-01-23 18:17] LABS: Hemoglobin A1C 4.8 % (4.0-6.0)
[2018-01-23] MEDS: SERTRALINE 100 MG TAB PO SCH (22:04)
[2018-01-23] MEDS: SENNOSIDES-DOCUSATE SODIUM 1 EACH TAB PO SCH (22:04)
[2018-01-23] MEDS: PRENATAL VIT-IRON-FOLIC ACID 1 EACH CAP PO SCH (22:04)
[2018-01-23] MEDS: LORATADINE 10 MG TAB PO SCH (22:04)
[2018-01-24] MEDS: IBUPROFEN 600 MG TAB PO PRN ×4 (04:11→22:54)
[2018-01-24 05:43] VITALS: RESP 16
[2018-01-24 06:13] LABS: Basophils % (A) 0 %; Eosinophils # (A) 0.1 k/uL (0-0.7); Eosinophils % (A) 1 %; HCT 36.2 % (34.0-46.0); HGB 12.1 gm/dL (11.4-16.0); Lymphocytes # (A) 1.9 k/uL (1.0-4.8); Lymphocytes % (A) 17 %; MCH 29.9 pg (25.0-35.0); MCHC 33.6 g/dL (31.0-37.0); Mean Platelet Volume 7.3; Monocytes # (A) 0.6 k/uL (0-1.0); Monocytes % (A) 5 %; Neutrophils # (A) 8.5 k/uL (1.3-7.7); Neutrophils % (A) 76 %; Platelet Count 157 k/uL (150-450); RBC 4.06 m/uL (3.80-5.40); RDW 14.7 % (11.5-15.5); WBC 11.2 k/uL (3.8-10.6)
[2018-01-24] MEDS: SENNOSIDES-DOCUSATE SODIUM 1 EACH TAB PO SCH ×2 (08:32→21:13)
--- NOTE | 2018-01-24 10:09 | P.PNOBGVD ---
Subjective - Subjective Principal diagnosis: day #1 status post normal spontaneous vaginal delivery Interval history: Patient did well overnight. This morning she states her pain is well- controlled. She is ambulating and voiding without difficulty. She is tolerating a regular diet without nausea or vomiting. She states her lochia is minimal. Patient reports: Reports appetite normal, Reports voiding normally, Reports pain well controlled, Reports ambulating normally : doing well Objective - Latest Vital Signs Latest vital signs: Vital Signs Temp Pulse Resp BP Pulse Ox 01/24/18 08:00 98.1 F 83 16 113/72 01/24/18 04:00 97.6 F 74 16 130/80 01/24/18 00:00 98.5 F 85 18 127/79 100 01/23/18 20:00 85 16 135/71 01/23/18 19:30 97.9 F 89 16 125/66 01/23/18 19:00 103 H 16 139/69 01/23/18 18:45 98.1 F 96 16 126/64 01/23/18 18:30 93 16 129/74 01/23/18 18:15 111 H 16 125/64 01/23/18 18:00 98.1 F 107 H 16 117/58 Intake and Output 01/23/18 01/24/18 01/24/18 22:59 06:59 14:59 Intake Total 1000 Output Total 200 Balance 800 Intake: Intake, IV Titration 1000 Amount Oxytocin 20 Units/1000 ml 1000 Ns 1,000 ml @ Per Protocol IV .Q0M MARYAM Rx#: [id number] Output: Urine 200 Other: # Voids 1 - Exam Extremities: Present: normal Abdomen: Present: normal appearance, soft Uterus: Present: firm (Below the umbilicus) - Labs Labs: Abnormal Lab Results - Last 24 Hours (Table) 01/24/18 Range/Units 05:39 WBC 11.2 H (3.8-10.6) k/uL Neutrophils # 8.5 H (1.3-7.7) k/uL Assessment and Plan (1) Term Current Visit: Yes Status: Acute Code(s): Z34.80 - ENCOUNTER FOR SUPRVSN OF NORMAL , UNSP TRIMESTER SNOMED Code(s): 67226720 (2) Status post normal vaginal delivery Current Visit: Yes Status: Acute Code(s): PRB8996 - SNOMED Code(s): 629309433 Plan: Will continue routine post care.
[2018-01-24] MEDS: LORATADINE 10 MG TAB PO SCH (21:13)
[2018-01-24] MEDS: SERTRALINE 100 MG TAB PO SCH (21:14)
[2018-01-24] MEDS: PRENATAL VIT-IRON-FOLIC ACID 1 EACH CAP PO SCH (21:30)
[2018-01-25] MEDS: SENNOSIDES-DOCUSATE SODIUM 1 EACH TAB PO SCH (08:15)
[2018-01-25 08:17] VITALS: BP 118/77; PULSE 79; TEMP 98.4
--- NOTE | 2018-01-25 08:29 | P.DS ---
Providers Date of admission: 01/23/18 08:42 Expected date of discharge: 01/25/18 Attending physician: Kim Washington Primary care physician: Stated None - Discharge Diagnosis(es) (1) Term Current Visit: Yes Status: Acute (2) Status post normal vaginal delivery Current Visit: Yes Status: Acute Hospital Course: This is a very pleasant 27-year-old 3 para 0111 that presented in active labor to labor and delivery on 716. Patient was initially 5 cm progressed through labor without difficulty eventually getting an epidural and having a normal spontaneous vaginal delivery of a viable male at 1744 weight of 614 Apgars of 8 and 9 at one and 5 minutes respectively. Patient's post course has been uneventful. She is ambulating and voiding without difficulty. She is tolerating a regular diet without nausea or vomiting she is breast-feeding with some difficulty. She is feeling well and wishes discharge home on this day #2. Patient Condition at Discharge: Good Plan - Discharge Summary Discharge Rx Participant: Yes New Discharge Prescriptions: No Action Cetirizine HCl [Zyrtec] 10 mg PO HS Mru-Gybq-Vbcsj Acid [-U Capsule (formulary)] 1 cap PO HS Sertraline [Zoloft] 100 mg PO HS Discharge Medication List Cetirizine HCl [Zyrtec] 10 mg PO HS 04/03/17 [History] Flu-Gdmg-Fnhrn Acid [-U Capsule (formulary)] 1 cap PO HS [History] Sertraline [Zoloft] 100 mg PO HS 07/27/17 [History] Follow up Appointment(s)/Referral(s): Kim Washington DO [Doctor of Osteopathic Medicine] - 1 Week Patient Instructions/Handouts: Vaginal Delivery (GEN), Vaginal Delivery (DC) Activity/Diet/Wound Care/Special Instructions: No tub baths or intercourse until 6 weeks Discharge Disposition: HOME SELF-CARE
[2018-01-25] MEDS: IBUPROFEN 600 MG TAB PO PRN (10:55)
== END 2018-01-25 12:15 | disposition home or self-care (01) | DRG 775 ==
LOC: FBPOP 08:19 → 4FBP 08:42
PROVIDERS: ADMIT Obstetrics & Gynecology Obstetrics; ATTEND Obstetrics & Gynecology Obstetrics
PROC: 00HU33Z Insertion of Infusion Device into Spinal Canal, Percutaneous Approach (ICD-10-PCS; principal; 2018-01-23)
PROC: 0HQ9XZZ Repair Perineum Skin, External Approach (ICD-10-PCS; principal; 2018-01-23)
PROC: 3E0R3BZ Introduction of Anesthetic Agent into Spinal Canal, Percutaneous Approach (ICD-10-PCS; principal; 2018-01-23)
PROC: 10E0XZZ Delivery of Products of Conception, External Approach (ICD-10-PCS; principal; 2018-01-23)
DX: O24.420 Gestational diabetes mellitus in childbirth, diet controlled (principal); O26.893 Other specified pregnancy related conditions, third trimester; Z67.21 Type B blood, Rh negative; O70.0 First degree perineal laceration during delivery; Z37.0 Single live birth; Z3A.38 38 weeks gestation of pregnancy; Z79.899 Other long term (current) drug therapy; Z86.718 Personal history of other venous thrombosis and embolism; Z86.2 Personal history of diseases of the blood and blood-forming organs and certain disorders involving the immune mechanism
CPT/HCPCS: 59025; 83036; 85025; 99213

== ENCOUNTER 2020-04-07 08:31 | Outpatient (CLI) | payer OTHER ==
[2020-04-07 08:54] LABS: Glucose,Whole Blood 118 mg/dL (75-99)
[2020-04-07 09:18] LABS: Appearance,Urine Cloudy (Clear); Bilirubin,Urine Negative (Negative); Blood,Urine Negative (Negative); Color,Urine Yellow; Glucose,Urine (UA) Negative (Negative); Hyaline Casts,Urine 1 /lpf (0-2); Ketones,Urine Negative (Negative); Leukocyte Esterase,Urine Negative (Negative); Mucus,Urine Many /hpf; Nitrite,Urine Negative (Negative); Protein,Urine Trace (Negative); RBC,Urine <1 /hpf (0-5); Specific Gravity,Urine 1.021 (1.001-1.035); Squamous Epithelial Cell,Urine 14 /hpf (0-4); Urobilinogen,Urine <2.0 mg/dL (<2.0); WBC,Urine 2 /hpf (0-5)
[2020-04-07] MEDS: LACTATED RINGERS 1,000 ML IV SCH ×2 (09:49→11:18)
[2020-04-07 10:01] VITALS: BP 121/72; PULSE 155; RESP 15; TEMP 96.8
[2020-04-07] MEDS ORDERED: ACETAMINOPHEN IV (For NPO) 1,000 MG in EMPTY BAG 1 BAG IVPB STA (11:03)
--- NOTE | 2020-04-24 17:11 | P.MSEPDOC ---
Presenting Problems - Arrival Data Date of Arrival on Unit: 04/07/20 Time of Arrival on Unit: 08:31 Mode of Transport: Ambulatory - Complaint OB-Reason for Admission/Chief Complaint: Possible Onset of Labor, Other Comment: PT complains of contractions since 0400 and that she just feels blah Medical History - Information : 4 Para: 2 Term: 1 : 1 Abortions: Spontaneous or Elective: 1 Number of Living Children: 2 - Gestational Age Gestational Age by RAYMOND (wks/days): 32 Weeks and 5 Days - History Complications: GDM Review of Systems - Review of Systems Constitutional: No problems Breast: No problems ENT: No problems Cardiovascular: No problems Respiratory: No problems Gastrointestinal: No problems Genitourinary: No problems Musculoskeletal: No problems Neurological: No problems Skin: No problems Vital Signs - Temperature Temperature: 96.8 F Temperature Source: Temporal Artery Scan - Pulse Pulse Oximetery Pulse Rate: 155 Pulse Assessment Method: Pulse Oximetry - Respirations Respiratory Rate: 15 Oxygen Delivery Method: Room Air O2 Sat by Pulse Oximetry: 99 - Blood Pressure Right Arm Blood Pressure: 121/72 Blood Pressure Mean: 88 Blood Pressure Source: Automatic Cuff Medical Screen Scoring (Pre) - Cervical Exam Dilation: 0 cm = 0 Membranes: Intact - Uterine Contractions Frequency: N/A Duration: N/A Intensity: N/A - Maternal Vital Signs Maternal Temperature: N/A Maternal Blood Pressure: N/A Signs of Preeclampsia: N/A Maternal Respirations: N/A - Maternal Trauma Maternal Trauma: N/A - Assessment - Baby A Baseline FHR: 140 Heart Rate - NICHD Category: Category I (Normal) = 0 NST: Reactive Position: N/A Station: N/A - Total Score - Baby A Total Score - Baby A: 0 - Total Score - Baby B Total Score - Baby B: 0 - Total Score - Baby C Total Score - Baby C: 0 - Level of Risk - Baby A Level of Risk - Baby A: Low (0-5) - Level of Risk - Baby B Level of Risk - Baby B: Low (0-5) - Level of Risk - Baby C Level of Risk - Baby C: Low (0-5) Physician Notification (Pre) - Physician Notified Physician Notified Date: 04/07/20 Physician Notified Time: 09:30 New Order Received: Yes Medical Screen Scoring (Post) - Cervical Exam Dilation: 1-3 cm = 1 Membranes: Intact - Uterine Contractions Frequency: N/A Duration: N/A Intensity: N/A - Maternal Vital Signs Maternal Temperature: N/A Maternal Blood Pressure: N/A Signs of Preeclampsia: N/A Maternal Respirations: N/A - Maternal Trauma Maternal Trauma: N/A - Assessment - Baby A Heart Rate: 140 Heart Rate - NICHD Category: Category I (Normal) = 0 NST: Reactive Position: N/A Station: N/A - Total Score Total Score - Baby A: 1 Total Score - Baby B: 1 Total Score - Baby C: 1 - Post Treatment Level of Risk Post Treatment Level of Risk - Baby A: Low (0-5) Post Treatment Level of Risk - Baby B: Low (0-5) Post Treatment Level of Risk - Baby C: Low (0-5) Physician Notification (Post) - Physician Notified Physician Notified Date: 04/07/20 Physician Notified Time: 12:14 Physician/Practitioner Notified:: Dr Washington Disposition - Disposition OB Disposition: Discharge to home Discharge Date: 04/07/20 Discharge Time: 12:22 I agree with the RN Medical Screening Exam: Yes Risk & Benefit of care provided described in d/c instruction: Yes Diagnosis: FALSE LABOR BEFORE 37 COMPLETED WEEKS OF GEST, THIRD TRI
== END 2020-04-07 12:29 | disposition home or self-care (01) ==
LOC: FBPOP 08:31
PROVIDERS: ATTEND Obstetrics & Gynecology
DX: O47.03 False labor before 37 completed weeks of gestation, third trimester (principal); Z3A.32 32 weeks gestation of pregnancy
CPT/HCPCS: 59025; 96361; 96365; 82731; 81001; G0463; J0131; 99214

== ENCOUNTER 2020-05-21 06:08 | Inpatient (IN) | payer OTHER ==
[2020-05-21] MEDS ORDERED: LIDOCAINE 0.5% (PF) 5 MG/ML (50 ML SDV) SQ PRN (06:29)
[2020-05-21] MEDS ORDERED: OXYTOCIN 10 UNIT/ML 1 ML VIAL IM PRN (06:29)
[2020-05-21] MEDS ORDERED: TERBUTALINE 1 MG/ML VIAL SQ PRN (06:29)
[2020-05-21] MEDS ORDERED: METHYLERGONOVINE 0.2 MG/ML 1 ML AMP IM PRN (06:29)
[2020-05-21] MEDS ORDERED: CARBOPROST TROMETHAMINE 250 MCG/ML 1 ML AMP IM PRN (06:29)
[2020-05-21] MEDS ORDERED: OXYTOCIN 30 UNITS/500 ML NS 30 UNIT in SALINE 1 500ML.BAG IV SCH (06:30)
[2020-05-21] MEDS: LACTATED RINGERS 1,000 ML IV SCH ×2 (06:38→11:04)
[2020-05-21 06:51] LABS: Basophils % (A) 0 %; Eosinophils # (A) 0.2 k/uL (0-0.7); Eosinophils % (A) 2 %; HCT 32.1 % (34.0-46.0); HGB 10.4 gm/dL (11.4-16.0); Hypochromasia Slight; Lymphocytes # (A) 2.6 k/uL (1.0-4.8); Lymphocytes % (A) 28 %; MCH 25.4 pg (25.0-35.0); MCHC 32.5 g/dL (31.0-37.0); MCV 78.1 fL (80.0-100.0); Monocytes # (A) 0.4 k/uL (0-1.0); Monocytes % (A) 5 %; Neutrophils # (A) 5.8 k/uL (1.3-7.7); Neutrophils % (A) 64 %; Platelet Count 175 k/uL (150-450); Poikilocytosis Slight; RBC 4.11 m/uL (3.80-5.40); RDW 15.8 % (11.5-15.5); WBC 9.2 k/uL (3.8-10.6)
[2020-05-21 08:11] LABS: Glucose,Whole Blood 91 mg/dL (75-99)
--- NOTE | 2020-05-21 08:39 | P.HPOB ---
History of Present Illness H&P Date: 05/21/20 Chief Complaint: IUP at 39 and 1/7,gdm This is a 29-year-old at 39-1/7 weeks that presents to labor and delivery for induction of labor. Patient is known gestational diabetes and has been diet controlled. Patient in addition has gestational anemia and has been taking her vitamin but she was unable to tolerate by mouth iron. growth has been excellent the 10th percentile NST and testing has been good. On bloodwork this patient has a blood type of B-, rubella status immune, RPR nonreactive, B surface antigen negative, HIV negative, GBS was negative on 05/01. Review of Systems Constitutional: Denies chills, Denies fatigue, Denies fever Ears, nose, mouth and throat: Denies headache Cardiovascular: Reports leg edema Respiratory: Denies dyspnea Gastrointestinal: Denies constipation, Denies diarrhea, Denies nausea, Denies vomiting Genitourinary: Reports Past Medical History Past Medical History: Blood Disorder, Deep Vein Thrombosis (DVT) Additional Past Medical History / Comment(s): History of a blood clot in her right arm after having her wisdom teeth pulled, anemia History of Any Multi-Drug Resistant Organisms: None Reported Past Surgical History: No Surgical Hx Reported Additional Past Surgical History / Comment(s): wisdom teeth removed Past Anesthesia/Blood Transfusion Reactions: No Reported Reaction Smoking Status: Never smoker - Past Family History Mother Family Medical History: No Reported History Medications and Allergies Home Medications Medication Instructions Recorded Confirmed Type Hvg-Zwgn-Lgzae Acid 1 cap PO HS 06/01/17 05/21/20 History [-U Capsule (formulary)] Sertraline [Zoloft] 100 mg PO HS 07/27/17 05/21/20 History Cetirizine HCl [Zyrtec] 10 mg PO DAILY 05/21/20 05/21/20 History Famotidine [Pepcid] 20 mg PO DAILY 05/21/20 05/21/20 History Iron 18 mg PO DAILY 05/21/20 05/21/20 History Allergies Allergy/AdvReac Type Severity Reaction Status Date / Time No Known Allergies Allergy Verified 05/21/20 06:26 Exam Osteopathic Statement: *. No significant issues noted on an osteopathic structural exam other than those noted in the History and Physical/Consult. Intake and Output 05/20/20 05/21/20 05/21/20 22:59 06:59 14:59 Other: Weight 81.647 kg Targeted physical exam is performed on this date and solution spec a well-nourished well-developed female in no acute distress, breathing is noted to be nonlabored, heart has regular rate and rhythm, abdomen is gravid and appropriate for gestational age, on cervical exam she is 3/thick/-2 station amniotomy is pe rformed and clear fluid was obtained. heart tones returned be category 1 and she is lennie every 4 minutes on Pitocin. Results Result Diagrams: 05/21/20 06:40 Abnormal Lab Results - Last 24 Hours (Table) 05/21/20 Range/Units 06:40 Hgb 10.4 L (11.4-16.0) gm/dL Hct 32.1 L (34.0-46.0) % MCV 78.1 L (80.0-100.0) fL RDW 15.8 H (11.5-15.5) % Assessment and Plan (1) GDM, class A1 Current Visit: Yes Status: Acute Code(s): O24.410 - GESTATIONAL DIABETES MELLITUS IN , DIET CONTROLLED SNOMED Code(s): 82647302 (2) Term Current Visit: No Status: Acute Code(s): Z34.80 - ENCOUNTER FOR SUPRVSN OF NORMAL , UNSP TRIMESTER SNOMED Code(s): 55235370 Plan: Patient is admitted to labor and delivery for planned Pitocin induction of labor. Pitocin is started per hospital protocol. Patient is offered analgesia during labor including Stadol and epidural. Patient will decide when she is uncomfortable. And states spontaneous vaginal delivery later this afternoon.
[2020-05-21] MEDS ORDERED: ROPIVACAINE 100 MG, fentaNYL (PF) 200 MCG in SODIUM CHLORIDE 0.9% 76 ML EPIDURAL ONE (11:40)
[2020-05-21] MEDS ORDERED: ACETAMINOPHEN TAB 325 MG TAB PO PRN (12:27)
[2020-05-21] MEDS ORDERED: SIMETHICONE 80 MG CHEWABLE PO PRN (12:27)
[2020-05-21] MEDS ORDERED: HYDROCORTISONE 2.5% RECTAL CREAM 30 GM TUBE RECTAL PRN (12:27)
[2020-05-21] MEDS ORDERED: diphenhydrAMINE 25 MG CAP PO PRN (12:27)
[2020-05-21] MEDS ORDERED: diphenhydrAMINE 50 MG/ML 1 ML VIAL IVP PRN ×2 (12:27)
[2020-05-21] MEDS ORDERED: LANOLIN CREAM 5 GM TUBE TOPICAL PRN (12:27)
[2020-05-21] MEDS ORDERED: BENZOCAINE/MENTHOL SPRAY 1 GM/SPRAY AEROSOL TOPICAL PRN (12:27)
[2020-05-21] MEDS ORDERED: ZOLPIDEM 5 MG TAB PO PRN (12:27)
[2020-05-21] MEDS ORDERED: diphenhydrAMINE 50 MG CAP PO PRN (12:27)
[2020-05-21] MEDS ORDERED: OXYTOCIN 20 UNITS/1000 ML NS 1,000 ML IV SCH (12:30)
--- NOTE | 2020-05-21 12:32 | P.PROBDLV ---
Vaginal Delivery Note - . Vaginal Delivery Note: this is a 29-year-old at 39 0/7 weeks that presents to labor and delivery for induction of labor secondary to gestational diabetes and small for gestational age. Patient was admitted to labor and delivery for planned induction of labor. Patient was admitted to labor and delivery Pitocin induction of labor was begun per hospital protocol. Patient underwent amniotomy clear fluid was obtained. Patient soon became uncomfortable requesting epidural placement. Epidural was placed without difficulty by the anesthesia department. Patient quickly became complete began pushing and had a normal spontaneous vaginal delivery of a viable male infant at 1210, weight of 6 lbs. 5 oz. and Apgars of 7 and 9 at one and 5 minutes respectively. Infant did have a loose body cord which was delivered through. spontaneous cry was noted at . After two-minute delayed the umbilical cord was doubly clamped and cut, and the was handed off to the maternal abdomen. The placenta was then delivered spontaneously intact with a three-vessel cord being noted. On inspection the patient's vaginal vault no vaginal lacerations were noted. Estimated blood loss 200 mL. Her uterus was firm and below the umbilicus after delivery. All counts were noted to be correct 2. Patient and infant tolerated delivery well and are resting comfortably.
[2020-05-21] MEDS: IBUPROFEN 600 MG TAB PO PRN (15:11)
[2020-05-21] MEDS: SENNOSIDES-DOCUSATE SODIUM 1 EACH TAB PO SCH (20:09)
[2020-05-22] MEDS: IBUPROFEN 600 MG TAB PO PRN ×3 (00:08→18:46)
--- NOTE | 2020-05-22 08:21 | P.DS ---
Providers Date of admission: 05/21/20 06:08 Expected date of discharge: 05/22/20 Attending physician: Kim Washington Primary care physician: Stated None - Discharge Diagnosis(es) (1) GDM, class A1 Current Visit: Yes Status: Acute (2) Term Current Visit: No Status: Acute (3) Vaginal delivery Current Visit: No Status: Acute Hospital Course: This is a 29-year-old at 39-0/7 weeks that presents to labor and delivery for induction of labor. Patient had routine care, positive diagnosis of gestational diabetes and diet controlled. She did struggle with gestational anemia in addition she took her vitamin as she was unable to tolerate by mouth iron. Patient was admitted to labor and delivery dose induction of labor was begun. Patient underwent amniotomy once regular contractions were noted. Clear fluid was obtained. Patient quickly became uncomfortable requesting epidural placement. Epidural was placed without difficulty by the anesthesia department. Soon after epidural was placed she was noted to be complete began pushing. Patient had a normal spontaneous vaginal delivery of a viable male infant at 1210, weight of 6 lbs. 5 oz. and Apgars of 7 and 9 at one and 5 minutes respectively. Patient's course has been essentially uneventful. On this day #1 she is involuting and voiding without difficulty. She is tolerating a regular diet without nausea or vomiting. She states her lochia is minimal. She is breast-feeding without difficulty. She would like discharge home at 24 hours. Patient Condition at Discharge: Good Plan - Discharge Summary New Discharge Prescriptions: No Action Vmr-Gxdz-Pyvdf Acid [-U Capsule (formulary)] 1 cap PO HS Sertraline [Zoloft] 100 mg PO HS Cetirizine HCl [Zyrtec] 10 mg PO DAILY Iron 18 mg PO DAILY Famotidine [Pepcid] 20 mg PO DAILY Discharge Medication List Utx-Bbuy-Awsya Acid [-U Capsule (formulary)] 1 cap PO HS 06/01/17 [History] Sertraline [Zoloft] 100 mg PO HS 07/27/17 [History] Cetirizine HCl [Zyrtec] 10 mg PO DAILY 05/21/20 [History] Famotidine [Pepcid] 20 mg PO DAILY 05/21/20 [History] Iron 18 mg PO DAILY 05/21/20 [History] Follow up Appointment(s)/Referral(s): Kim Washington DO [Doctor of Osteopathic Medicine] - 4 Weeks Patient Instructions/Handouts: Vaginal Delivery (DC), Vaginal Delivery (GEN) Activity/Diet/Wound Care/Special Instructions: No tub baths or intercourse until 6 weeks . Patient is to follow-up at 4 weeks for routine visit. Cuqg-rjo-ehnljcs ibuprofen as needed for pain. Discharge Disposition: HOME SELF-CARE
[2020-05-22] MEDS: SENNOSIDES-DOCUSATE SODIUM 1 EACH TAB PO SCH (09:12)
[2020-05-22 09:28] LABS: Basophils % (A) 0 %; Eosinophils # (A) 0.1 k/uL (0-0.7); Eosinophils % (A) 1 %; HCT 30.5 % (34.0-46.0); HGB 9.6 gm/dL (11.4-16.0); Hypochromasia Moderate; Lymphocytes # (A) 2.2 k/uL (1.0-4.8); Lymphocytes % (A) 22 %; MCH 25.4 pg (25.0-35.0); MCHC 31.5 g/dL (31.0-37.0); MCV 80.7 fL (80.0-100.0); Mean Platelet Volume 8.8; Monocytes # (A) 0.3 k/uL (0-1.0); Monocytes % (A) 3 %; Neutrophils # (A) 7.4 k/uL (1.3-7.7); Neutrophils % (A) 73 %; Platelet Count 162 k/uL (150-450); RBC 3.78 m/uL (3.80-5.40); WBC 10.2 k/uL (3.8-10.6)
[2020-05-22] MEDS ORDERED: DIPH,PERTUS(ACELL)TETVAC-LF 0.5 ML VIAL IM ONE (10:17)
[2020-05-23] MEDS: SENNOSIDES-DOCUSATE SODIUM 1 EACH TAB PO SCH ×2 (06:35→08:30)
--- NOTE | 2020-05-23 08:25 | P.PNOBGVD ---
Subjective - Subjective Principal diagnosis: PPD 2 Interval history: Patient is doing well . She is ambulating and voiding without difficulty. She is bottle feeding. She states her lochia is minimal. She did stay overnight secondary to elevated bilirubin noted in the . remains on bili blanket with plan to discontinue this a.m. and repeat levels and 6 hours. She understands she will be discharged home later today. Patient reports: Reports appetite normal, Reports voiding normally, Reports pain well controlled, Reports ambulating normally : doing well, bottle feeding Objective - Latest Vital Signs Latest vital signs: Vital Signs Temp Pulse Resp BP 05/23/20 00:00 97.9 F 70 16 124/73 05/22/20 23:41 74 16 05/22/20 16:00 98.1 F 74 16 120/83 Intake and Output 05/22/20 05/23/20 05/23/20 22:59 06:59 14:59 Other: Voiding Method Toilet # Voids 2 2 - Exam Extremities: Present: normal, edema Abdomen: Present: normal appearance Uterus: Present: normal, firm - Labs Labs: Abnormal Lab Results - Last 24 Hours (Table) 05/22/20 Range/Units 08:44 RBC 3.78 L (3.80-5.40) m/uL Hgb 9.6 L (11.4-16.0) gm/dL Hct 30.5 L (34.0-46.0) % RDW 16.0 H (11.5-15.5) % Assessment and Plan (1) GDM, class A1 Current Visit: Yes Status: Acute Code(s): O24.410 - GESTATIONAL DIABETES MELLITUS IN , DIET CONTROLLED SNOMED Code(s): 32475801 (2) Term Current Visit: No Status: Acute Code(s): Z34.80 - ENCOUNTER FOR SUPRVSN OF NORMAL , UNSP TRIMESTER SNOMED Code(s): 86927045 (3) Vaginal delivery Current Visit: No Status: Acute Code(s): O80 - ENCOUNTER FOR FULL-TERM UNCOMPLICATED DELIVERY SNOMED Code(s): 040850741 Plan: We'll plan discharge home later this afternoon, discharge instructions are reviewed with the patient she is to call with any concerns or questions prior to her appointment in 4 weeks.
[2020-05-23] MEDS: IBUPROFEN 600 MG TAB PO PRN (08:31)
[2020-05-23 09:14] VITALS: BP 126/76; PULSE 78; RESP 17; TEMP 98.3
== END 2020-05-23 14:45 | disposition home or self-care (01) | DRG 807 ==
LOC: 4FBP 06:08
PROVIDERS: ADMIT Obstetrics & Gynecology Obstetrics; ATTEND Obstetrics & Gynecology Obstetrics
PROC: 3E0R3NZ Introduction of Analgesics, Hypnotics, Sedatives into Spinal Canal, Percutaneous Approach (ICD-10-PCS; principal; 2020-05-21)
PROC: 10907ZC Drainage of Amniotic Fluid, Therapeutic from Products of Conception, Via Natural or Artificial Opening (ICD-10-PCS; principal; 2020-05-21)
PROC: 00HU33Z Insertion of Infusion Device into Spinal Canal, Percutaneous Approach (ICD-10-PCS; principal; 2020-05-21)
PROC: 10E0XZZ Delivery of Products of Conception, External Approach (ICD-10-PCS; principal; 2020-05-21)
PROC: 3E033VJ Introduction of Other Hormone into Peripheral Vein, Percutaneous Approach (ICD-10-PCS; principal; 2020-05-21)
DX: O24.420 Gestational diabetes mellitus in childbirth, diet controlled (principal); Z37.0 Single live birth; O99.02 Anemia complicating childbirth; D64.9 Anemia, unspecified; Z3A.39 39 weeks gestation of pregnancy; O69.81X0 Labor and delivery complicated by cord around neck, without compression, not applicable or unspecified
CPT/HCPCS: 85025; 86850; 86870; 86880; 86900; 86901; 90715

== ENCOUNTER → 2021-08-20 | Outpatient (CLI) | payer OTHER ==
[2021-08-20 18:46] LABS: Estradiol 19.3 pg/mL; Follicle Stimulating Hormone 8.4 mIU/mL; Luteinizing Hormone 7.1 mIU/mL; Prolactin 12.3 ng/mL (2.800-29.200); Testosterone 27.2 ng/mL (9.01-47.94)
== END | disposition home or self-care (01) ==
LOC: LABWHC1 11:54
PROVIDERS: ATTEND Family Medicine
DX: N92.0 Excessive and frequent menstruation with regular cycle (principal); N64.52 Nipple discharge; L65.9 Nonscarring hair loss, unspecified
CPT/HCPCS: 36415; 82306; 82670; 83001; 83002; 84146; 84403

== ENCOUNTER → 2021-09-30 | Outpatient (CLI) | payer OTHER ==
[2021-09-30 09:48] LABS: African American GFR (CKD) >90 (>60 ml/min/1.73 sqM); Blood Urea Nitrogen 9 mg/dL (7-17); Non-African American GFR(CKD) >90 (>60 ml/min/1.73 sqM)
--- NOTE | 2021-09-30 10:35 | CT ---
EXAMINATION TYPE: CT abdomen pelvis w con DATE OF EXAM: 09/30/2021 COMPARISON: CT dated 06/09/2015 HISTORY: RLQ pain, constipation, diarrhea CT DLP: 1359 mGycm Automated exposure control for dose reduction was used. TECHNIQUE: Helical acquisition of images was performed from the lung bases through the pelvis. CONTRAST: Performed with Oral Contrast and with IV Contrast, patient injected with 100mL mL of Isovue 300. FINDINGS: LUNG BASES: Minimal focal groundglass infiltration of the right lung base, likely inflammatory/infect ious in etiology, please correlate clinically. LIVER/GB: Unremarkable liver. The gallbladder is not distended. PANCREAS: No significant abnormality is seen. SPLEEN: No significant abnormality is seen. ADRENALS: No significant abnormality is seen. KIDNEYS: No significant abnormality is seen. FREE AIR: No free air is visualized. RETROPERITONEAL ADENOPATHY: None visualized REPRODUCTIVE ORGANS: The endometrium measures up to 11 mm which could be normal for the patient's age . Suspected normal follicle within the left ovary measuring 2.3 cm. No suspicious ovarian or adnexal mass. URINARY BLADDER: Grossly unremarkable. PELVIC ADENOPATHY: No pathologically enlarged lymph nodes. OSSEOUS STRUCTURES: No aggressive bone lesion. BOWEL: Unremarkable stomach, duodenum and small bowel. The colonic hepatic flexure and the proximal portion of the transverse colon are seen passing superiorly between the stomach and the liver which w as also appreciated previously. This may suggest focal uncomplicated internal hernia. Grossly unremar kable remainder of the colon. Normal appendix. OTHER: Unremarkable abdominal aorta and IVC. No sizable ascites. Small fat-containing umbilical herni a. IMPRESSION: No definite acute abnormality or suspicious lesion seen in the abdomen or the pelvis. Please correlat e clinically for the above-described incidental findings.
== END | disposition home or self-care (01) ==
LOC: RADCTMAIN 08:26
PROVIDERS: ATTEND Family Medicine
DX: K59.00 Constipation, unspecified (principal); R19.7 Diarrhea, unspecified
CPT/HCPCS: 82565; 84520; 74177; 36415; Q9967

== ENCOUNTER 2021-10-20 17:11 | Emergency (ER) | payer OTHER ==
[2021-10-20 17:35] VITALS: TEMP 97.8
[2021-10-20 17:58] LABS: ALT 40 U/L (4-34); AST 34 U/L (14-36); African American GFR (CKD) >90 (>60 ml/min/1.73 sqM); Albumin 4.7 g/dL (3.5-5.0); Alkaline Phosphatase 54 U/L (38-126); Anion Gap 10 mmol/L; Blood Urea Nitrogen 9 mg/dL (7-17); Calcium 9.2 mg/dL (8.4-10.2); Carbon Dioxide 22 mmol/L (22-30); Chloride 108 mmol/L (98-107); Glucose 92 mg/dL (74-99); Non-African American GFR(CKD) >90 (>60 ml/min/1.73 sqM); Potassium 4.3 mmol/L (3.5-5.1); Sodium 140 mmol/L (137-145); Total Bilirubin 0.4 mg/dL (0.2-1.3); Total Protein 7.7 g/dL (6.3-8.2)
[2021-10-20 18:22] LABS: Basophils % (A) 0 %; Eosinophils # (A) 0.1 k/uL (0-0.7); Eosinophils % (A) 1 %; HCT 40.9 % (34.0-46.0); Hypochromasia Slight; Lymphocytes # (A) 2.7 k/uL (1.0-4.8); Lymphocytes % (A) 25 %; MCH 26.6 pg (25.0-35.0); MCHC 31.8 g/dL (31.0-37.0); MCV 83.7 fL (80.0-100.0); Mean Platelet Volume 7.7; Monocytes # (A) 0.2 k/uL (0-1.0); Monocytes % (A) 2 %; Neutrophils # (A) 7.7 k/uL (1.3-7.7); Neutrophils % (A) 70 %; Platelet Count 309 k/uL (150-450); RBC 4.89 m/uL (3.80-5.40); RDW 14.2 % (11.5-15.5)
[2021-10-20] MEDS ORDERED: IOPAMIDOL CONTRAST (ORAL USE) VIAL PO PRN (19:38)
--- NOTE | 2021-10-20 20:02 | ED ---
General Adult HPI - General Chief complaint: Abdominal Pain Stated complaint: Bowel issues-Sent by Dr. William Time Seen by Provider: 10/20/21 19:39 Source: patient, RN notes reviewed Mode of arrival: ambulatory Limitations: no limitations - History of Present Illness Initial comments: Patient is a pleasant 31-year-old female presenting to the emergency department with concerns for abdominal discomfort. Onset of symptoms was around a month ago. Symptoms originally were present with intercourse however now are persistent. Discomfort is more right-sided, more upper abdomen. Patient has had nausea, no vomiting. Patient has had some intermittent constipation and diarrhea. No fevers. Patient did see her doctor with outpatient computed tomography scan. Patient is having worsening symptoms and her doctor recommended she come for further evaluation. - Related Data Home Medications Medication Instructions Recorded Confirmed Cetirizine HCl [Zyrtec] 10 mg PO HS 05/21/20 10/20/21 ARIPiprazole [Abilify] 5 mg PO DAILY 10/20/21 10/20/21 Ascorbic Acid/Collagen Hydr 1 cap PO DAILY 10/20/21 10/20/21 [Collagen Plus Vit C Capsule] Cymbalta (Unknown Strength) 1 dose PO HS 10/20/21 10/20/21 Dextroamphetamine/Amphetamine 30 mg PO DAILY 10/20/21 10/20/21 [Adderall Xr] Ergocalciferol (Vitamin D2) 1,250 mcg PO SA 10/20/21 10/20/21 [Drisdol (50,000 Iu)] Etonogestrel/Ethinyl Estradiol 1 vag ring VAGINAL Q28D 10/20/21 10/20/21 [Eluryng Vaginal Ring] Liothyronine Sodium [Cytomel] 5 mcg PO DAILY 10/20/21 10/20/21 Multivitamins, Thera [Multivitamin 1 tab PO DAILY 10/20/21 10/20/21 (formulary)] Previous Rx's Medication Instructions Recorded Famotidine [Pepcid] 20 mg PO BID #30 tablet 10/20/21 Ondansetron Odt [Zofran Odt] 4 mg PO Q8HR PRN #10 tab 10/20/21 Allergies Allergy/AdvReac Type Severity Reaction Status Date / Time No Known Allergies Allergy Verified 10/20/21 21:05 Review of Systems ROS Statement: Those systems with pertinent positive or pertinent negative responses have been documented in the HPI. ROS Other: All systems not noted in ROS Statement are negative. Constitutional: Denies: fever Eyes: Denies: eye pain ENT: Denies: ear pain Respiratory: Denies: cough Cardiovascular: Denies: chest pain Endocrine: Denies: fatigue Gastrointestinal: Reports: as per HPI, abdominal pain, nausea, diarrhea, constipation Genitourinary: Denies: dysuria Musculoskeletal: Denies: back pain Skin: Denies: rash Neurological: Denies: weakness Past Medical History Past Medical History: Blood Disorder, Deep Vein Thrombosis (DVT) Additional Past Medical History / Comment(s): History of a blood clot in her right arm after having her wisdom teeth pulled, anemia. MTHFR gene mutation of blood History of Any Multi-Drug Resistant Organisms: None Reported Past Surgical History: No Surgical Hx Reported Additional Past Surgical History / Comment(s): wisdom teeth removed Past Anesthesia/Blood Transfusion Reactions: No Reported Reaction Past Psychological History: Anxiety, Depression Smoking Status: Never smoker Past Alcohol Use History: None Reported Past Drug Use History: None Reported - Past Family History Mother Family Medical History: No Reported History General Exam Limitations: no limitations General appearance: alert, in no apparent distress Head exam: Present: normocephalic Eye exam: Present: normal appearance Neck exam: Present: normal inspection Respiratory exam: Present: normal lung sounds bilaterally Cardiovascular Exam: Present: regular rate, normal rhythm Expanded Peripheral pulses: 2+: Dorsalis Pedis (R), Dorsalis Pedis (L) GI/Abdominal exam: Present: soft, tenderness (Mild tenderness right periumbilical), normal bowel sounds. Absent: distended, guarding, rebound, rigid, pulsatile mass Extremities exam: Present: normal inspection Neurological exam: Present: alert Psychiatric exam: Present: normal affect, normal mood Skin exam: Present: normal color Course Vital Signs 10/20/21 17:25 Temperature 97.8 F Pulse Rate 98 Respiratory 18 Rate Blood Pressure 113/71 O2 Sat by Pulse 100 Oximetry - Reevaluation(s) Reevaluation #1: 10/20/21 20:01 Case was discussed with Dr. William prior to patient arrival with concern of patient having abdominal discomfort with abnormal computed tomography scan. She was going to have patient to outpatient GI consult however pain is getting worse. Case was discussed with Dr. Perez who does recommend 2 hour oral only computed tomography scan. 10/20/21 20:26 Patient does not want any pain medicine at this time however is receptive to nausea medicine Medical Decision Making - Medical Decision Making Case was discussed in detail with Dr. Escalante including previous CT and he states patient can be discharged with follow-up . Patient reevaluated and resting comfortably in bed. Patient updated on results and need for follow-up. Patient also recommended to follow-up with Dr. Menezes. - Lab Data Result diagrams: 10/20/21 17:36 10/20/21 17:36 Lab Results 10/20/21 10/20/21 Range/Units 17:36 17:36 WBC 11.0 H (3.8-10.6) k/uL RBC 4.89 (3.80-5.40) m/uL Hgb 13.0 (11.4-16.0) gm/dL Hct 40.9 (34.0-46.0) % MCV 83.7 (80.0-100.0) fL MCH 26.6 (25.0-35.0) pg MCHC 31.8 (31.0-37.0) g/dL RDW 14.2 (11.5-15.5) % Plt Count 309 (150-450) k/uL MPV 7.7 Neutrophils % 70 % Lymphocytes % 25 % Monocytes % 2 % Eosinophils % 1 % Basophils % 0 % Neutrophils # 7.7 (1.3-7.7) k/uL Lymphocytes # 2.7 (1.0-4.8) k/uL Monocytes # 0.2 (0-1.0) k/uL Eosinophils # 0.1 (0-0.7) k/uL Basophils # 0.0 (0-0.2) k/uL Hypochromasia Slight Sodium 140 (137-145) mmol/L Potassium 4.3 (3.5-5.1) mmol/L Chloride 108 H (98-107) mmol/L Carbon Dioxide 22 (22-30) mmol/L Anion Gap 10 mmol/L BUN 9 (7-17) mg/dL Creatinine 0.72 (0.52-1.04) mg/dL Est GFR (CKD-EPI)AfAm >90 (>60 ml/min/1.73 sqM) Est GFR (CKD-EPI)NonAf >90 (>60 ml/min/1.73 sqM) Glucose 92 (74-99) mg/dL Calcium 9.2 (8.4-10.2) mg/dL Total Bilirubin 0.4 (0.2-1.3) mg/dL AST 34 (14-36) U/L ALT 40 H (4-34) U/L Alkaline Phosphatase 54 (38-126) U/L Total Protein 7.7 (6.3-8.2) g/dL Albumin 4.7 (3.5-5.0) g/dL - Radiology Data Radiology results: report reviewed (Computed tomography scan today reveals no acute abnormality) Disposition Clinical Impression: Abdominal pain Disposition: HOME SELF-CARE Condition: Stable Instructions (If sedation given, give patient instructions): Abdominal Pain (E D) Additional Instructions: Prescriptions sent to pharmacy. Please do follow-up with primary care physician in the next day or 2 for recheck. Please do follow-up with Dr. Menezes. Please do follow-up with Dr. Escalante on . Return for fever, increased pain, change or worsening symptoms, or any other concerns. Prescriptions have been sent to pharmacy. Prescriptions: Famotidine [Pepcid] 20 mg PO BID #30 tablet Ondansetron Odt [Zofran Odt] 4 mg PO Q8HR PRN #10 tab PRN Reason: Nausea Is patient prescribed a controlled substance at d/c from ED?: No Referrals: Elsa William MD [Primary Care Provider] - 1-2 days Yoel Escalante MD [STAFF PHYSICIAN] - 1-2 days Galina Perez MD [STAFF PHYSICIAN] - 1-2 days Time of Disposition: 22:46
[2021-10-20] MEDS ORDERED: ONDANSETRON ODT 4 MG TAB PO STA (20:23)
[2021-10-20] MEDS ORDERED: FAMOTIDINE 20 MG TAB PO STA (20:24)
[2021-10-20] MEDS ORDERED: MORPHINE SULFATE 4 MG/ML SYRINGE IVP STA (21:16)
--- NOTE | 2021-10-20 22:37 | CT ---
EXAMINATION TYPE: CT abdomen pelvis wo con DATE OF EXAM: 10/20/2021 COMPARISON: 09/30/2021 HISTORY: Abd pain, n/v CT DLP: 535.7 mGycm Automated exposure control for dose reduction was used. Images obtained from the diaphragm to the floor the pelvis without contrast. There is oral contrast. There is mild subsegmental atelectasis at the lung bases. Heart size is normal. There is no pericardi al effusion. Liver and spleen are intact. The stomach is intact. There is no pancreatic mass. Gallbla dder appears normal. Stomach is intact. There is no adrenal mass. Kidneys show normal size and contour. There is no hydronephrosis. Ureters a re not dilated. There is no retroperitoneal adenopathy. Bladder distends smoothly. There is no inguin al hernia. There is no free fluid in the pelvis. Uterus is anteverted. No evidence of pelvic mass. Appendix appears normal. There is no mesenteric edema. No ascites or free air. No bowel obstruction. Lumbar vertebra appear intact. No compression fracture. Pelvic ring is intact. Sacroiliac joints are intact. IMPRESSION: No acute abnormality of the abdomen and pelvis. Normal appendix. No adverse change.
[2021-10-20 23:25] VITALS: BP 102/58; PULSE 89; RESP 16
== END 2021-10-20 23:14 | disposition home or self-care (01) ==
LOC: EC 17:11
DX: R10.11 Right upper quadrant pain (principal); F41.9 Anxiety disorder, unspecified; F32.A Depression, unspecified; Z86.718 Personal history of other venous thrombosis and embolism
CPT/HCPCS: 99284; 96374; 36415; 80053; 85025; 74176; J2270

== ENCOUNTER → 2021-11-20 | Outpatient (CLI) | payer OTHER ==
--- NOTE | 2021-11-20 08:16 | US ---
EXAMINATION TYPE: US gallbladder DATE OF EXAM: 11/20/2021 COMPARISON: CT CLINICAL HISTORY: R10.11 RIGHT UPPER QUAD PAIN. Pt states RUQ pain that radiates to right shoulder EXAM MEASUREMENTS: Liver Length: 16.0 cm Gallbladder Wall: 0.2 cm CBD: 0.5 cm Right Kidney: 9.6 x 3.8 x 5.2 cm Pancreas: Obscured by bowel gas Liver: Visualized portions appeared wnl Gallbladder: wnl Evidence for sonographic Plunkett's sign: No CBD: wnl Right Kidney: wnl IMPRESSION: No significant abnormality seen.
== END | disposition home or self-care (01) ==
LOC: RADUSWWP 07:51
PROVIDERS: ATTEND Surgery Plastic and Reconstructive Surgery
DX: R10.11 Right upper quadrant pain (principal)
CPT/HCPCS: 76705

== ENCOUNTER → 2021-12-18 | Outpatient (CLI) | payer OTHER ==
--- NOTE | 2021-12-18 16:13 | NM ---
EXAMINATION TYPE: NM hepatobiliary w EF DATE OF EXAM: 12/18/2021 COMPARISON: NONE INDICATION: Chronic cholecystitis TECHNIQUE: After the intravenous administration of 4.64 mCi Tc 99m Mebrofenin hepatobiliary scintigra phy is performed. Images were obtained immediately post injection. FINDINGS: There is prompt uptake and excretion of radiotracer by the liver. Extrahepatic ducts are identified at 6 minutes. The gallbladder is visualized within 6 minutes. Small bowel activity is noted within 90 minutes. At one hour 8 ounces of oral ensure plus is given to mimic CCK and gallbladder ejection fraction is c alculated at 58 %, which is in the normal range. (Normal >35% and <80%.). IMPRESSION: 1. Normal hepatobiliary scan
== END | disposition home or self-care (01) ==
LOC: RADNMMAIN 12:39
PROVIDERS: ATTEND Surgery Plastic and Reconstructive Surgery
DX: K81.1 Chronic cholecystitis (principal)
CPT/HCPCS: 78226; A9537

== ENCOUNTER 2022-02-12 10:08 | Day surgery (SDC) | payer OTHER ==
[2022-02-09 16:11] VITALS: BMI 29.8
--- NOTE | 2022-02-12 07:42 | P.GSHP ---
History of Present Illness H&P Date: 02/12/22 CHIEF COMPLAINT: Cholecystitis HISTORY OF PRESENT ILLNESS: The patient is a 31-year-old female who presents with history of epigastric including right upper quadrant abdominal pain. She underwent diagnostic studies for her gallbladder. Separately her clinical picture was consistent with cholecystitis. Now she presents for surgical intervention. PAST MEDICAL HISTORY: Please see list PAST SURGICAL HISTORY: Please see list MEDICATIONS: Please see list ALLERGIES: Please see list SOCIAL HISTORY: Please see list FAMILY HISTORY: Please see list REVIEW OF ORGAN SYSTEMS: CONSTITUTIONAL: No reports of fevers or chills. HEENT: Denies any troubles with the vision or hearing. ENDOCRINE: No reports of hypothyroidism. No diabetes. RESPIRATORY: No recent pneumonias. CARDIOVASCULAR: Denies chest pain or palpitations GI: No blood in stools or constipation. MUSCULOSKELETAL: Has occasional joint pain including back pain. NEURO: No seizure disorders or headaches. No recent stroke. PSYCH: No depression or suicidal ideation. GENITOURINARY: No active blood in urine. No urinary hesitancy. HEMATOLOGIC: No personal or family history of DVTs or pulmonary emboli. SKIN: No skin cancer. PHYSICAL EXAM: VITAL SIGNS: Afebrile vital signs stable GENERAL: Well-developed pleasant in no acute distress. HEENT: No scleral icterus. Extraocular movements grossly intact. Moist buccal mucosa. NECK: Supple without lymphadenopathy. CHEST: Unlabored respirations. Equal bilateral excursions. CARDIOVASCULAR: Regular rate regular rhythm rhythm. Distal 2+ pulses. ABDOMEN: Soft, nondistended. Tender along the epigastrium and right upper quadrant. MUSCULOSKELETAL: No clubbing, cyanosis, or edema. NEURO: Cranial nerves II to XII within normal limits. No focal or lateralizing signs. PSYCH: Alert and oriented to person, place and time. SKIN: Well-perfused good skin turgor. ASSESSMENT: 1. Epigastric and right upper quadrant abdominal pain 2. Chronic cholecystitis 3. Symptomatic gallstones. PLAN: 1. Will need a robotic cholecystectomy possible open. Benefits and risks were described. 2. Heparin for DVT prophylaxis 5000 units. 3. Antibiotic prophylaxis. Past Medical History Past Medical History: Blood Disorder, Deep Vein Thrombosis (DVT) Additional Past Medical History / Comment(s): History of a blood clot in her right arm after having her wisdom teeth pulled, anemia,. MTHFR gene mutation of blood History of Any Multi-Drug Resistant Organisms: None Reported Past Surgical History: No Surgical Hx Reported Additional Past Surgical History / Comment(s): wisdom teeth removed,egd,colonoscopy,procedure w/ camera to look at my heart-no sure what it was called Past Anesthesia/Blood Transfusion Reactions: Motion Sickness, Postoperative Nausea & Vomiting (PONV) Additional Past Anesthesia/Blood Transfusion Reaction / Comment(s): no hc blood transfusion Smoking Status: Never smoker - Past Family History Father Family Medical History: No Reported History Mother Family Medical History: No Reported History Medications and Allergies Home Medications Medication Instructions Recorded Confirmed Type Cetirizine HCl [Zyrtec] 10 mg PO HS 05/21/20 02/09/22 History ARIPiprazole [Abilify] 5 mg PO QAM 10/20/21 02/09/22 History Cymbalta (Unknown Strength) 1 dose PO HS 10/20/21 02/09/22 History Dextroamphetamine/Amphetamine 30 mg PO QAM 10/20/21 02/09/22 History [Adderall Xr] Ergocalciferol (Vitamin D2) 1,250 mcg PO SA 10/20/21 02/09/22 History [Drisdol (50,000 Iu)] Liothyronine Sodium [Cytomel] 5 mcg PO QAM 10/20/21 02/09/22 History Multivitamins, Thera [Multivitamin 1 tab PO DAILY 10/20/21 02/09/22 History (formulary)] Omeprazole [PriLOSEC] 40 mg PO DAILY #14 cap 12/17/21 02/09/22 Rx Allergies Allergy/AdvReac Type Severity Reaction Status Date / Time No Known Allergies Allergy Verified 02/09/22 16:01
[~2022-02-12 10:08] MED LIST: ACETAMINOPHEN TAB 500 MG TAB PO PRN; DEXAMETHASONE SOD PHOSPHATE 4 MG/ML 1 ML VIAL IV ONE; FAMOTIDINE 20 MG TAB PO PRN; GABAPENTIN 300 MG CAP PO PRN; INDOCYANINE GREEN 25 MG VIAL IV STA; LACTATED RINGERS 1,000 ML IV SCH; LIDOCAINE 1% (10MG/ML) FOR IV START INTRADERMA PRN; MELOXICAM 7.5 MG TAB PO PRN; MIDAZOLAM 2 MG/2 ML VIAL IV PRN; ONDANSETRON 4 MG/2 ML VIAL IVP ONE; SCOPOLAMINE 1 MG/72 HR PATCH TRANSDERM PRN
[2022-02-12] MEDS: LACTATED RINGERS 1,000 ML IV SCH ×2 (10:40→14:00)
[2022-02-12] MEDS: HEPARIN SODIUM,PORCINE/PF 5,000 UNIT/0.5 ML SYRINGE SQ PRN ×2 (10:41→11:00)
[2022-02-12 10:44] VITALS: TEMP 96.9
[2022-02-12 10:48] LABS: Basophils % (A) 0 %; Eosinophils # (A) 0.2 k/uL (0-0.7); Eosinophils % (A) 3 %; HCT 38.2 % (34.0-46.0); Hypochromasia Slight; Lymphocytes # (A) 2.9 k/uL (1.0-4.8); Lymphocytes % (A) 34 %; MCHC 31.5 g/dL (31.0-37.0); MCV 82.5 fL (80.0-100.0); Mean Platelet Volume 7.6; Monocytes # (A) 0.4 k/uL (0-1.0); Monocytes % (A) 4 %; Neutrophils # (A) 4.8 k/uL (1.3-7.7); Neutrophils % (A) 57 %; Platelet Count 310 k/uL (150-450); RBC 4.63 m/uL (3.80-5.40); RDW 14.2 % (11.5-15.5); WBC 8.5 k/uL (3.8-10.6)
[2022-02-12 11:00] LABS: ALT 13 U/L (4-34); AST 22 U/L (14-36); African American GFR (CKD) >90 (>60 ml/min/1.73 sqM); Albumin 4.3 g/dL (3.5-5.0); Alkaline Phosphatase 67 U/L (38-126); Anion Gap 6 mmol/L; Blood Urea Nitrogen 13 mg/dL (7-17); Carbon Dioxide 25 mmol/L (22-30); Chloride 110 mmol/L (98-107); Glucose 87 mg/dL (74-99); Non-African American GFR(CKD) >90 (>60 ml/min/1.73 sqM); Potassium 4.4 mmol/L (3.5-5.1); Sodium 141 mmol/L (137-145); Total Bilirubin 0.5 mg/dL (0.2-1.3); Total Protein 6.9 g/dL (6.3-8.2)
[2022-02-12] MEDS ORDERED: GLYCOPYRROLATE 0.2 MG/ML 2 ML VIAL ONE (11:30)
[2022-02-12] MEDS ORDERED: SUCCINYLCHOLINE CHLORIDE 200 MG/10 ML VIAL IV ONE (11:30)
[2022-02-12] MEDS ORDERED: INDOCYANINE GREEN 25 MG VIAL IV ONE (11:30)
[2022-02-12] MEDS ORDERED: PHENYLEPHRINE-0.9% NACL SYG 1,000 MCG/10 ML SYRINGE ONE (11:30)
[2022-02-12] MEDS ORDERED: MIDAZOLAM 2 MG/2 ML VIAL ONE (11:30)
[2022-02-12] MEDS ORDERED: PROPOFOL 10 MG/ML 20 ML VIAL IV ONE (11:30)
[2022-02-12] MEDS ORDERED: NEOSTIGMINE 1 MG/ML 10 ML VIAL ONE (11:30)
[2022-02-12] MEDS ORDERED: LIDOCAINE 2% INJ 20 MG/ML (2 ML VIAL) ONE (11:30)
[2022-02-12] MEDS ORDERED: fentaNYL (PF) 50 MCG/ML 2 ML AMP ONE (11:30)
[2022-02-12] MEDS ORDERED: ROCURONIUM 10 MG/ML (5 ML VIAL) IV ONE (11:30)
[2022-02-12] MEDS ORDERED: BUPIVACAIN-EPI 0.25%-1:200,000 30 ML VIAL SQ ONE ×2 (11:55→12:03)
[2022-02-12] MEDS ORDERED: LACTATED RINGERS 1,000 ML IV ONE (12:31)
--- NOTE | 2022-02-12 12:41 | P.OP ---
Date of Procedure: 02/12/22 Description of Procedure: SURGEON: DAYSI BATISTA MD PREOPERATIVE DIAGNOSES: 1. Symptomatic gallstone 2. Right upper quadrant abdominal pain 3. Gastroesophageal reflux disease 4. Hypothyroidism POSTOPERATIVE DIAGNOSES: 1. Symptomatic gallstone 2. Right upper quadrant abdominal pain 3. Gastroesophageal reflux disease 4. Hypothyroidism 5. Fatty liver disease OPERATION: Robotic-assisted da Nick Xi laparoscopic cholecystectomy, multiport with FIREFLY ESTIMATED BLOOD LOSS: 5 mL. SPECIMENS REMOVED: Gallbladder. COMPLICATIONS: None. OPERATIVE FINDINGS: 1. Mild fatty liver disease INDICATIONS: The patient is a 31-year-old female who presents with symptomatic gallstones. Robotic assisted laparoscopic approach was described. Benefits and risks of the procedure including but not limited to bleeding, infection, injury to the biliary tree was described. Informed consent was obtained. DESCRIPTION OF PROCEDURE: Patient was brought to the operating room, placed in supine position. After general induction, the abdomen had been prepped and draped in standard sterile fashion. The robotic da Nick XI system was primed. After a timeout protocol was performed, the patient had been prepped and draped in standard sterile fashion. The patient was injected with indocyanine green. A 5 mm 0 degrees laparoscopic trocar entry was performed along the left upper quadrant. The abdomen insufflated to 15 mmHg pressure which was tolerated well. Diagnostic laparoscopy demonstrated no injury to bowel viscera or mesentery. The liver surface was unremarkable. Next, two 8 mm robotic ports were placed along the right upper abdomen. The camera 8-mm port was maintained along the epigastrium. Another 8 mm port was placed along the left upper abdominal wall after exchanging the 5 mm port. Please note that the ports were placed at least 10 to 15 cm away from the target anatomy of the gallbladder. The robot was docked along the left lateral abdomen. The patient was repositioned in reverse Trendelenburg position. Using a grasper for arm 3, a grasper for arm 4, including hook cautery for arm 1, the robotic system was docked and primed as described. Instruments were interchanged by the radiology assistant including hook cautery, Bovie cautery and clip appliers. I had sat at the console. Next attention was brought to the infundibulum and cystic structures. The infundibulum and cystic duct were dissected free from surrounding tissues. The cystic duct was isolated. FIREFLY was used to identify the cystic artery and cystic structures. A critical view of safety was obtained. Large PLASTIC clips were used throughout the entire case. Using a clip business development professional, 2 clips were placed at the junction of the infundibulum and cystic duct. The cystic duct was divided between clips. Next, the cystic artery was similarly clipped and cauterized. Electro-Bovie cautery was used to remove the gallbladder from the hepatic fossa. Hemostasis was checked and found to be adequate. The robot was undocked. I re-scrubbed into the case. Using a 10 mm Endo Catch bag via the left upper quadrant incision, the specimen was removed from the abdominal cavity. All pneumoperitoneum instruments were evacuated from the abdominal cavity. The incisions were reapproximated using 4-0 Monocryl in an interrupted subcuticular fashion. Fascial defects were less than 8 mm in size. Please note along the trocar sites, local anesthetic was placed as a field block prior to insertion of all instruments. Liquid glue was applied to the skin. At the end of the procedure needle, sponge, and instrument count had been verified correct by the neurosurgical nurse. The patient was transferred to postanesthesia care unit in stable condition. Intraoperative films were shared with the patient's family. Plan - Discharge Summary Discharge Rx Participant: No New Discharge Prescriptions: Continue Cetirizine HCl [Zyrtec] 10 mg PO HS Ergocalciferol (Vitamin D2) [Drisdol (50,000 Iu)] 1,250 mcg PO SA Liothyronine Sodium [Cytomel] 5 mcg PO QAM Cymbalta (Unknown Strength) 1 dose PO HS Multivitamins, Thera [Multivitamin (formulary)] 1 tab PO DAILY Dextroamphetamine/Amphetamine [Adderall Xr] 30 mg PO QAM ARIPiprazole [Abilify] 5 mg PO QAM Omeprazole [PriLOSEC] 40 mg PO DAILY #14 cap Discharge Medication List Cetirizine HCl [Zyrtec] 10 mg PO HS 05/21/20 [History] ARIPiprazole [Abilify] 5 mg PO QAM 10/20/21 [History] Cymbalta (Unknown Strength) 1 dose PO HS 10/20/21 [History] Dextroamphetamine/Amphetamine [Adderall Xr] 30 mg PO QAM 10/20/21 [History] Ergocalciferol (Vitamin D2) [Drisdol (50,000 Iu)] 1,250 mcg PO SA 10/20/21 [History] Liothyronine Sodium [Cytomel] 5 mcg PO QAM 10/20/21 [History] Multivitamins, Thera [Multivitamin (formulary)] 1 tab PO DAILY 10/20/21 [History] Omeprazole [PriLOSEC] 40 mg PO DAILY #14 cap 12/17/21 [Rx] Follow up Appointment(s)/Referral(s): Daysi Batista MD [STAFF PHYSICIAN] - 02/16/22 (Telehealth) Patient Instructions/Handouts: Laparoscopic Cholecystectomy (DC), Low Fat Diet (DC), *[facility]gery [facility] - Managing Your Pain After Surgery Without Opioids Activity/Diet/Wound Care/Special Instructions: Recommend low-fat diet for the next 2 days. No lifting over 10 pounds in 2 weeks until Feb 26. May shower. No bath tub soaks for two weeks until Feb 26. Diet as tolerated. Use Tylenol, simethicone and ibuprofen or Aleve scheduled for the next 24-48 hours for best pain relief. Use ice along incisions for today to prevent swelling. Discharge Disposition: HOME SELF-CARE
[2022-02-12] MEDS: HYDROmorphone 0.5 MG/0.5 ML SYRINGE IVP PRN ×3 (12:59→13:23)
[2022-02-12 13:57] VITALS: RESP 18
[2022-02-12 14:21] VITALS: BP 106/72; PULSE 62
== END 2022-02-12 14:50 | disposition home or self-care (01) ==
LOC: OR 10:08
PROVIDERS: ATTEND Surgery Plastic and Reconstructive Surgery
DX: K81.1 Chronic cholecystitis (principal); K76.0 Fatty (change of) liver, not elsewhere classified; K21.9 Gastro-esophageal reflux disease without esophagitis; E03.9 Hypothyroidism, unspecified; F41.9 Anxiety disorder, unspecified; F32.A Depression, unspecified; F17.200 Nicotine dependence, unspecified, uncomplicated; Z79.899 Other long term (current) drug therapy; Z79.890 Hormone replacement therapy; Z83.79 Family history of other diseases of the digestive system; Z86.718 Personal history of other venous thrombosis and embolism
CPT/HCPCS: 88304; 80053; 85025; 47562; J2250; J0330; J1100; J2710; J0690; J2405; J3010; J2370; J2704; J1170; J1644; J2001

== ENCOUNTER → 2022-03-24 | Outpatient (CLI) | payer OTHER ==
[2022-03-25 00:02] LABS: ALT 16 U/L (8-44); AST 18 U/L (13-35); Albumin 4.6 g/dL (3.8-4.9); Albumin/Globulin Ratio 1.94 (1.60-3.17); Alkaline Phosphatase 94 U/L (41-126); BUN/Creat Ratio 11.98 Ratio (12.00-20.00); Blood Urea Nitrogen 9.4 mg/dL (9.0-27.0); Calcium 9.3 mg/dL (8.7-10.3); Carbon Dioxide 22.4 mmol/L (20.0-27.5); Chloride 103 mmol/L (96-109); Globulin 2.4 g/dL (1.6-3.3); Glucose 167 mg/dL (70-110); Non-African American GFR(CKD) 100.1 (60.0-200.0); Sodium 139 mmol/L (135-145); Total Bilirubin <0.15 mg/dL (0.30-1.20)
== END | disposition home or self-care (01) ==
LOC: LABWHC1 16:23
PROVIDERS: ATTEND Surgery Plastic and Reconstructive Surgery
DX: K81.1 Chronic cholecystitis (principal)
CPT/HCPCS: 36415; 80053

== ENCOUNTER → 2022-03-30 | Outpatient (CLI) | payer OTHER ==
[2022-03-31 14:30] LABS: Alpha 1 Anti-Trypsin 140 mg/dL (90 - 200)
== END | disposition home or self-care (01) ==
LOC: LABWHC1 12:32
PROVIDERS: ATTEND Family Medicine
DX: J44.9 Chronic obstructive pulmonary disease, unspecified (principal)
CPT/HCPCS: 36415; 82103; 82104

== ENCOUNTER → 2022-05-26 | Outpatient (CLI) | payer OTHER ==
--- NOTE | 2022-05-26 14:53 | US ---
EXAMINATION TYPE: US pelvic complete DATE OF EXAM: 05/26/2022 COMPARISON: US 2017 CLINICAL HISTORY: R10.2 PELVIC AND PERINEAL PAIN. Intermittent right pelvic pain x couple weeks TECHNIQUE: . Transabdominal sonographic images of the pelvis were acquired. Date of LMP: Patient on her period EXAM MEASUREMENTS: Uterus: 8.4 x 3.2 x 4.7 cm Endometrial Stripe: 0.3 cm Right Ovary: 2.6 x 1.8 x 1.6 cm Left Ovary: 2.8 x 1.4 x 1.4 cm 1. Uterus: anteverted 2. Endometrium: appears wnl 3. Right Ovary: wnl 4. Left Ovary: wnl 5. Bilateral Adnexa: wnl 6. Posterior cul-de-sac: wnl IMPRESSION: 1. No evidence for acute pelvic process. 2. Endometrium within normal limits for thickness.
== END | disposition home or self-care (01) ==
LOC: RADUSWWP 13:50
PROVIDERS: ATTEND Family Medicine
DX: R10.2 Pelvic and perineal pain (principal)
CPT/HCPCS: 76856

== ENCOUNTER → 2022-09-30 | Outpatient (CLI) | payer OTHER | END | disposition home or self-care (01) | LOC: LABWHC1 09:54 | PROVIDERS: ATTEND Physician Assistant | DX: R53.83 Other fatigue (principal) | CPT/HCPCS: 36415; 82024; 82088; 82533 ==

== ENCOUNTER → 2023-09-07 | Outpatient (CLI) | payer OTHER ==
--- NOTE | 2023-09-08 09:59 | US ---
EXAMINATION TYPE: US abdomen complete DATE OF EXAM: 09/07/2023 COMPARISON: 11/20/2021 CLINICAL INDICATION: Female, 32 years old with history of R748 ABNORMAL LEVELS OF OTHER SERUM ENZYMES R10.11 RIGHT UPP; Abnormal labs. Patient states right flank pain. Cholecystectomy 2 years ago. No ot her symptoms TECHNIQUE: Multiple sonographic images of the abdomen are obtained. FINDINGS: EXAM MEASUREMENTS: Liver Length: 15.0 cm Gallbladder Wall: Surgically absent CBD: Unable to visualize due to gas CHD: 0.4 Spleen: 10.3 cm Right Kidney: 10.0 x 4.4 x 6.1 cm Left Kidney: 10.6 x 5.0 x 3.7 cm CHIEF SECURITY AND SAFETY OFFICER NOTES: Limited due to overlying bowel gas Pancreas: Obscured by bowel gas Liver: wnl as best visualized. Portions of left liver lobe obscured by gas Gallbladder: Surgically absent Evidence for sonographic Plunkett's sign: No CBD: unable to visualize due to midline gas CHD: WNL Spleen: wnl Right Kidney: No hydronephrosis or masses seen as best visualized Left Kidney: There is a 1.8 x 1.8 x 1.9cm anechoic area seen mid medullary region. This appears simp le with through-transmission and posterior wall enhancement.. Upper IVC: wnl Abd Aorta: Prox obscured by bowel gas. Mid/distal WNL. IMPRESSION: 1. Left medullary renal simple appearing cyst.
== END | disposition home or self-care (01) ==
LOC: RADUSWWP 07:14
PROVIDERS: ATTEND Internal Medicine Gastroenterology
DX: R74.8 Abnormal levels of other serum enzymes (principal); R10.11 Right upper quadrant pain; R73.03 Prediabetes
CPT/HCPCS: 76700

== ENCOUNTER → 2023-09-07 | Outpatient (CLI) | payer OTHER ==
[2023-09-07 15:47] LABS: Basophils # (A) 0.03 X 10*3/uL (0.00-0.10); Basophils % (A) 0.4 %; Eosinophils # (A) 0.14 X 10*3/uL (0.04-0.35); Eosinophils % (A) 1.9 %; HCT 40.7 % (37.2-46.3); HGB 13.1 g/dL (12.0-15.0); Lymphocytes # (A) 2.74 X 10*3/uL (0.90-5.00); Lymphocytes % (A) 36.6 %; MCH 29.4 pg (27.0-32.0); MCHC 32.2 g/dL (32.0-37.0); MCV 91.5 FL (80.0-97.0); Mean Platelet Volume 10.7 FL (9.5-12.2); Monocytes # (A) 0.42 X 10*3/uL (0.20-1.00); Monocytes % (A) 5.6 %; NRBC Per 100 WBC 0 X 10*3/uL (0.00-0.01); Neutrophils # (A) 4.14 X 10*3/uL (1.80-7.70); Neutrophils % (A) 55.2 %; Platelet Count 249 X 10*3/uL (140-440); RBC 4.45 X 10*6/uL (4.10-5.20); RDW 13.1 % (11.5-14.5); WBC 7.49 X 10*3/uL (4.50-10.00)
[2023-09-07 15:52] LABS: INR 0.98 sec (0.93-1.11); Prothrombin Time 10.6 sec (9.9-11.9)
[2023-09-07 16:19] LABS: Hepatitis A Ab, Total Nonreactive; Hepatitis B Surface Antigen Nonreactive; Hepatitis C IgG Antibody Nonreactive
[2023-09-07 16:29] LABS: Ceruloplasmin 35.3 mg/dL (20.0-60.0)
[2023-09-07 16:36] LABS: % Iron Saturation 37.31 (12.00-45.00); ALT 12 U/L (8-44); AST 12 U/L (13-35); Albumin 4.3 g/dL (3.8-4.9); Albumin/Globulin Ratio 2.05 Ratio (1.60-3.17); Alkaline Phosphatase 53 U/L (41-126); BUN/Creat Ratio 15.25 Ratio (12.00-20.00); Bilirubin, Conjugated <0.20 mg/dL (0.20-0.40); Bilirubin,Unconjugated >0.20 mg/dL (0.20-1.00); Blood Urea Nitrogen 12.2 mg/dL (9.0-27.0); Calcium 9.2 mg/dL (8.7-10.3); Chloride 108 mmol/L (96-109); Ferritin 19.2 ng/mL (10.0-291.0); Globulin 2.1 g/dL (1.6-3.3); Glucose 82 mg/dL (70-110); Iron 172 UG/DL (50-170); Potassium 4.3 mmol/L (3.5-5.5); Sodium 141 mmol/L (135-145); T4, Free (Free Thyroxine) 1.12 ng/dL (0.80-1.80); Total Bilirubin 0.4 mg/dL (0.3-1.2); Total Iron Binding Capacity 461 UG/DL (228-460); Total Protein 6.4 g/dL (6.2-8.2)
[2023-09-08 10:32] LABS: CMV DNA Qualitative Not detected (Not detected); CMV DNA, Quantitative <30 IU/mL (<30); LOG CMV Copies/mL <76 Copies/mL (<76); Log Cytomegalovirus <1.48 (<1.48)
== END | disposition home or self-care (01) ==
LOC: LABWHC1 07:47
PROVIDERS: ATTEND Internal Medicine Gastroenterology
DX: R74.8 Abnormal levels of other serum enzymes (principal); R10.11 Right upper quadrant pain; R73.03 Prediabetes
CPT/HCPCS: 36415; 80053; 82103; 82248; 82390; 82728; 82784; 83036; 83516; 83540; 83550; 84439; 84443; 84481; 85025; 85610; 86038; 86039; 86704; 86706; 86708; 86800; 86803; 87340; 87497; 87529

== ENCOUNTER → 2024-01-31 | Outpatient (CLI) | payer OTHER ==
--- NOTE | 2024-01-31 13:05 | CT ---
EXAMINATION TYPE: CT brain wo con CT DLP: 999.80 mGycm, Automated exposure control for dose reduction was used. DATE OF EXAM: 01/31/2024 12:31 PM CLINICAL INDICATION:Female, 33 years old with history of R51.9 new onset headache, new onset headache with neck pain TECHNIQUE: Brain: Axial CT images of the brain were obtained with coronal and sagittal reformats created and rev iewed. Contrast used: None. Oral contrast used: None. FINDINGS: Brain: Extra-axial spaces: No abnormal extra-axial fluid collections. Ventricular system: Within normal limits Cerebral parenchyma: No acute intraparenchymal hemorrhage or mass effect. The cotter-white junction is well differentiated. Cerebellum: Unremarkable. Mass effect: No evidence of midline shift. Intracranial vasculature: unremarkable Soft tissues: Normal. Calvarium/osseous structures: No depressed skull fracture. Paranasal sinuses and mastoid air cells: Mild scattered paranasal sinus disease. Visualized orbits: Orbital contents are intact. IMPRESSION: No acute intracranial process is detected.
--- NOTE | 2024-01-31 13:57 | XR ---
EXAMINATION TYPE: XR cervical spine comp DATE OF EXAM: 01/31/2024 CLINICAL HISTORY: pain COMPARISON: NONE TECHNIQUE: Frontal, lateral, oblique, swimmers, and open mouth view of the cervical spine are obtaine d. FINDINGS: The cervical spine is visualized in its entirety from C1 thru the top of T1 level. It is s atisfactory in alignment without evidence of acute fracture or dislocation. The pre-vertebral soft t issue appears within normal limits. Disc spaces are well preserved. The C1-C2 articulation is unremar kable on the open mouth view. The oblique images are within normal limits. IMPRESSION: No acute fracture or dislocation is seen in the cervical spine.ICD 10 NO FRACTURE, INITI AL EVALUATION
== END | disposition home or self-care (01) ==
LOC: RADCTMAIN 12:12
PROVIDERS: ATTEND Internal Medicine
DX: R51.9 Headache, unspecified (principal); M54.2 Cervicalgia
CPT/HCPCS: 70450; 72050